=== PATIENT | male | born 1940 | race Caucasian/White ===

== ENCOUNTER 2019-02-12 11:26 | Inpatient (IN) | payer MEDICARE ==
[2019-02-12] MEDS ORDERED: NALOXONE 0.4 MG/ML 1 ML VIAL IV PRN (14:50)
[2019-02-12] MEDS ORDERED: TEMAZEPAM 15 MG CAP PO PRN (14:53)
[2019-02-12] MEDS: ALPRAZolam 0.25 MG TAB PO PRN (15:29)
[2019-02-12] MEDS: HYDROmorphone 0.5 MG/0.5 ML SYRINGE IVP PRN (15:29)
[2019-02-12 15:40] LABS: Basophils % (A) 0 %; Eosinophils # (A) 0.5 k/uL (0-0.7); Eosinophils % (A) 5 %; HCT 33.1 % (39.0-53.0); HGB 10.6 gm/dL (13.0-17.5); Lymphocytes # (A) 0.4 k/uL (1.0-4.8); Lymphocytes % (A) 4 %; MCH 30.3 pg (25.0-35.0); MCHC 32.1 g/dL (31.0-37.0); MCV 94.5 fL (80.0-100.0); Monocytes # (A) 0.8 k/uL (0-1.0); Monocytes % (A) 8 %; Neutrophils # (A) 7.9 k/uL (1.3-7.7); Neutrophils % (A) 81 %; Platelet Count 522 k/uL (150-450); RDW 14.4 % (11.5-15.5); WBC 9.8 k/uL (3.8-10.6)
[2019-02-12 15:49] LABS: Albumin 3.3 g/dL (3.5-5.0); Potassium 4.6 mmol/L (3.5-5.1); Total Bilirubin 0.5 mg/dL (0.2-1.3); Total Protein 6.2 g/dL (6.3-8.2)
[2019-02-12] MEDS: SODIUM CHLORIDE 0.9% 1,000 ML IV SCH (16:16)
[2019-02-12] MEDS: cloNIDine HCL 0.1 MG TAB PO SCH ×2 (16:17→20:09)
[2019-02-12] MEDS: HYDROcodone/APAP 5-325MG 1 EACH TAB PO PRN (19:26)
[2019-02-12] MEDS: amLODIPine 5 MG TAB PO SCH (20:09)
[2019-02-12] MEDS: HEPARIN SODIUM,PORCINE 5,000 UNIT/ML 1 ML VIAL SQ SCH (20:10)
--- NOTE | 2019-02-12 23:00 | CONS ---
CONSULTATION We do not have any data available in the computer at present. This patient was transferred from [facility] because of the recurrent hip dislocation and patient's blood pressure was running high. This patient underwent hip surgery couple of days ago and subsequently patient developed recurrent hip dislocation. Patient was going to have a repeat surgery, but in spite of multiple medications, this patient's blood pressure was running high and so he was transferred over here. Actually, the patient denies any past history of high blood pressure. No cardiac problems. No history of myocardial infarction, congestive heart failure, diabetes, or stroke. The patient has a history of colon cancer, and has a colostomy. PAST MEDICAL HISTORY: History of colostomy. No history of other cardiac problems. No history of diabetes. PHYSICAL EXAMINATION: At present reveals the patient is lying comfortably in the bed without any significant pain. Blood pressure is 178/80 mmHg. Head/ENT examination is negative. Neck is supple. There is no increase in jugular venous pressure. Both the carotid pulses are felt. There is no bruit. Chest is symmetrical. Heart the PMI is not felt. First and second heart sounds are normal. There is no evidence of any murmur. Lungs are clinically clear to auscultation and percussion. Abdomen is negative. Extremities: Peripheral pulsations are 2+. Initial CBC and electrolytes are normal. IMPRESSION: Uncontrolled hypertension, exact etiology undetermined in the postop period. The patient is not in any significant pain at present. RECOMMENDATIONS: We will do EKG and echocardiogram. Patient is started on clonidine 0.1 mg t.i.d. and amlodipine 5 mg b.i.d. Hopefully that will help to control the patient's blood pressure. Once the patient's blood pressure is controlled, the patient can undergo the surgery. MMODL / IJN: [id number] /
[2019-02-12] MEDS: hydrALAZINE HCL 20 MG/ML 1 ML VIAL IVP PRN (23:46)
--- NOTE | 2019-02-12 23:57 | HP ---
HISTORY AND PHYSICAL CHIEF COMPLAINT: Hypertension. HISTORY OF PRESENT ILLNESS: This 78-year-old gentleman with a past medical history of multiple medical problems, including prostate disorder, history of bowel resection, hernia repair, DJD, history of anxiety, being followed by Dr. Lambert in the outpatient setting, had right hip arthroplasty by Dr. Mosqueda in [facility]. Patient apparently fell down, hitting a stool on the way to the bathroom, and subsequently patient had dislocation twice. The patient was supposed to undergo intervention, but the patient was found to be hypertensive. The physician from [facility] discussed the case with us and the patient was directly transferred to [facility] and admitted for further evaluation and treatment. There is no history of any fever, rigor or chills. No history of headache, loss of consciousness, seizures. PAST MEDICAL HISTORY: 1. Prostate disorder. 2. History of bowel resection. 3. History of DJD. 4. History of hernia. 5. Anxiety. HOME MEDICATIONS: 1. Keflex 500 mg p.o. t.i.d. 2. Requip 0.5 mg at bedtime. 3. Flomax 0.4 daily. ALLERGIES: NONE. FAMILY HISTORY: History of dementia and prostate disorder. SOCIAL HISTORY: No history of smoking. No history of alcohol intake. REVIEW OF SYSTEMS: ENT: Diminished hearing. Diminished vision. CARDIOVASCULAR SYSTEM: No angina, palpitations. RESPIRATORY SYSTEM: As mentioned earlier. GI: No nausea, vomiting. : As mentioned earlier. NERVOUS SYSTEM: No numbness, weakness. ALLERGY/IMMUNOLOGY: No asthma, hayfever. MUSCULOSKELETAL: As mentioned earlier. HEMATOLOGY/ONCOLOGY: No history of anemia. ENDOCRINE: No history of diabetes, hypothyroidism. CONSTITUTIONAL: As mentioned earlier. DERMATOLOGY: Negative. RHEUMATOLOGY: Negative. PSYCHIATRY: As mentioned earlier. PHYSICAL EXAMINATION: Patient alert and oriented x3. Pulse is 92, blood pressure 190/96, respirations 16, temperature 98.4, pulse ox 94% on room air. HEENT: Conjunctivae normal. Oral mucosa moist. NECK: No jugular venous distention. No carotid bruit. No lymph node enlargement. CARDIOVASCULAR SYSTEM: S1, S2 muffled. No S3. No S4. RESPIRATORY SYSTEM: Breath sounds diminished at the bases. No rhonchi. No crackles. ABDOMEN: Soft, non-tender. No mass palpable. LEGS: Status post right hip arthroplasty. Slightly painful. Minimal swelling present. NERVOUS SYSTEM: Higher functions as mentioned earlier. Moves all 4 limbs. No focal motor or sensory deficit. LYMPHATICS: No lymph node palpable in neck, axillae or groin. SKIN: No ulcer, rash, bleeding. JOINTS: No active deforming arthropathy. LABS: Labs at this time show WBC 9.8, hemoglobin 10.6, platelets 522. Glucose 110. Albumin is 3.3. ASSESSMENT: 1. Accelerated hypertension and hypertensive urgency. 2. Recent right hip arthroplasty as well as dislocations. 3. Anemia, normocytic; anemia of chronic disease. 4. Increased platelets. 5. History of enlarged prostate. 6. History of bowel resection. 7. History of degenerative joint disease. 8. History of tonsillectomy. 9. History of anxiety. RECOMMENDATIONS AND DISCUSSION: In this 78-year-old gentleman who presented with multiple medical issues, at this time I recommend to continue current medications, continue with symptomatic treatment. Otherwise at this time I will initiate Norvasc and clonidine. Cardiology consultation. P.r.n. medication also will be given. DVT prophylaxis. Orthopedic evaluation. Two-D echo, EKG. Symptomatic treatment. The prognosis is guarded because of multiple complex medical issues. Further recommendations to follow. A copy of this dictation is being forwarded to Dr. Lambert, who is the primary physician. See orders for further details. MMODL / IJN: [id number] /
[2019-02-13] MEDS: HYDROmorphone 0.5 MG/0.5 ML SYRINGE IVP PRN ×2 (01:46→11:45)
[2019-02-13 06:13] LABS: Basophils % (A) 0 %; Eosinophils # (A) 0.3 k/uL (0-0.7); Eosinophils % (A) 3 %; HCT 32.7 % (39.0-53.0); HGB 10.8 gm/dL (13.0-17.5); Lymphocytes # (A) 0.4 k/uL (1.0-4.8); Lymphocytes % (A) 3 %; MCH 30.5 pg (25.0-35.0); MCHC 32.9 g/dL (31.0-37.0); MCV 92.6 fL (80.0-100.0); Mean Platelet Volume 7.3; Monocytes % (A) 10 %; Neutrophils # (A) 8.5 k/uL (1.3-7.7); Neutrophils % (A) 83 %; Platelet Count 530 k/uL (150-450); RBC 3.53 m/uL (4.30-5.90); RDW 14.7 % (11.5-15.5); WBC 10.3 k/uL (3.8-10.6)
[2019-02-13 06:25] LABS: Calcium 9.1 mg/dL (8.4-10.2); Potassium 4.5 mmol/L (3.5-5.1)
[2019-02-13] MEDS: HYDROcodone/APAP 5-325MG 1 EACH TAB PO PRN (06:33)
[2019-02-13] MEDS: PANTOPRAZOLE 40 MG TABLET PO SCH (06:33)
[2019-02-13] MEDS: TAMSULOSIN 0.4 MG CAP.ER.24H PO SCH (08:23)
[2019-02-13] MEDS: HEPARIN SODIUM,PORCINE 5,000 UNIT/ML 1 ML VIAL SQ SCH ×2 (08:23→22:08)
[2019-02-13] MEDS: cloNIDine HCL 0.1 MG TAB PO SCH (08:23)
[2019-02-13] MEDS: amLODIPine 5 MG TAB PO SCH ×2 (08:23→22:08)
[2019-02-13] MEDS: hydrALAZINE HCL 20 MG/ML 1 ML VIAL IVP PRN (08:24)
--- NOTE | 2019-02-13 09:31 | XR ---
EXAMINATION TYPE: XR Hip Limited RT DATE OF EXAM: 02/13/2019 COMPARISON: NONE HISTORY: Right hip dislocation and pain TECHNIQUE: Single AP view of the right hip FINDINGS: The femoral head is dislocated cephalad to the acetabular component on this single view. No acute fracture seen of the [place] osseous structures on the single view. Another plasty appears elaine sly intact. IMPRESSION: Superior displacement of the right femoral arthroplasty on AP view only.
--- NOTE | 2019-02-13 10:23 | ECHOF ---
Referral Reason:hypertension MEASUREMENTS -------- HEIGHT: 162.6 cm WEIGHT: 91.6 kg BP: 162/92 RVIDd: 3.6 cm (< 3.3) IVSd: 1.5 cm (0.6 - 1.1) LVIDd: 3.9 cm (3.9 - 5.3) LVPWd: 1.4 cm (0.6 - 1.1) IVSs: 1.8 cm LVIDs: 2.7 cm LVPWs: 2.0 cm LA Diam: 2.5 cm (2.7 - 3.8) LAESV Index (A-L): 33.98 ml/m Ao Diam: 3.8 cm (2.0 - 3.7) AV Cusp: 2.1 cm (1.5 - 2.6) EPSS: 0.4 cm MV E Edwin: 1.16 m/s MV DecT: 99 ms MV A Edwin: 0.33 m/s MV E/A Ratio: 3.53 AV maxP.74 mmHg AV meanP.60 mmHg AR PHT: 989 ms RAP: 5.00 mmHg RVSP: 44.69 mmHg MV EF SLOPE: 160.82 mm/s (70 - 150) MV EXCURSION: 1.68 cm (> 18.000) FINDINGS -------- Resting tachycardia (HR>100bpm). This was a technically adequate study. The left ventricular size is normal. There is moderate concentric left ventricular hypertrophy. O verall left ventricular systolic function is normal with, an EF between 60 - 65 %. The right ventricle is mildly enlarged. Left atrium is moderately dilated by volume. The right atrium is normal in size and function. Interatrial and interventricular septum intact. There is mild aortic valve sclerosis without stenosis. There is mild aortic regurgitation. There is mild aortic stenosis present. Peak/mean gradient across the valve is 16.74mmHg / 8.60mmHg. The mitral valve leaflets are mildly thickened. Mild mitral annular calcification present. Mild tricuspid regurgitation present. There is mild pulmonary hypertension. The right ventricular systolic pressure, as measured by Doppler, is 44.69mmHg. CONCLUSIONS -------- 1. Resting tachycardia (HR>100bpm). 2. This was a technically adequate study. 3. The left ventricular size is normal. 4. There is moderate concentric left ventricular hypertrophy. 5. Overall left ventricular systolic function is normal with, an EF between 60 - 65 %. 6. The right ventricle is mildly enlarged. 7. Left atrium is moderately dilated by volume. 8. The right atrium is normal in size and function. 9. Interatrial and interventricular septum intact. 10. There is mild aortic valve sclerosis without stenosis. 11. There is mild aortic regurgitation. 12. There is mild aortic stenosis present. 13. Peak/mean gradient across the valve is 16.74mmHg / 8.60mmHg. 14. The mitral valve leaflets are mildly thickened. 15. Mild mitral annular calcification present. 16. Mild tricuspid regurgitation present. 17. There is mild pulmonary hypertension. 18. The right ventricular systolic pressure, as measured by Doppler, is 44.69mmHg. LOGISTICS SPECIALIST: CHHAYA Lira
--- NOTE | 2019-02-13 11:45 | P.CNOR ---
<Rupal Weinberg Yonatan - Last Filed: 02/13/19 11:45> History of Present Illness - [facility] Consult date: 02/13/19 Consult reason: other (Recurrent right hip dislocation) History of present illness: The patient is a 78-year-old male with a history of prostate disorder and previous bowel resection with colostomy who presented to [facility] yesterday after transfer from [facility]. He is status post right total hip replacement on 02/04/[address] Mosqueda at [facility]. The patient states that he was doing well until postop day 2 when he twisted wrong in the bathroom and felt his right leg got underneath him. The hip was reduced by Dr. Mosqueda without difficulty. The hip however dislocated again when he was leaning over and twisting while still the hospital. The patient's states that that reduction was more difficult. A revision surgery was planned however the patient was found to have severe hypertension. [facility] does not have in ICU and Dr. Mosqueda was concerned the patient may require IV anti-hyp ertension medication postoperatively. The patient was then transferred here to [facility] for further evaluation and treatment for his hypertension. The patient has been evaluated by internal medicine and cardiology. We were consulted for his recurrent hip dislocation status post recent right total hip surgery. Today, the patient states that he is somewhat comfortable while laying in bed. He does have full body spasms at times and states IV pain medication does seem to help. He currently has a abduction pillow in place. Review of Systems Constitutional: Denies chills, Denies fatigue, Denies fever Cardiovascular: Denies chest pain, Denies shortness of breath Respiratory: Denies cough Gastrointestinal: Denies nausea, Denies vomiting Musculoskeletal: right: hip pain, hip stiffness, hip swelling Past Medical History Past Medical History: Prostate Disorder Additional Past Medical History / Comment(s): Enlarged prostate. History of Any Multi-Drug Resistant Organisms: None Reported Past Surgical History: Bowel Resection, Hernia Repair, Joint Replacement, Orthopedic Surgery, Tonsillectomy Additional Past Surgical History / Comment(s): hernia 1970, 2014 cancerous polyp removed chemo pill with radiation, 2018 colostomy placed, Right hip 02/04/2019 Past Anesthesia/Blood Transfusion Reactions: No Reported Reaction Past Psychological History: Anxiety Smoking Status: Never smoker Past Drug Use History: None Reported - Past Family History Father Family Medical History: Dementia, Prostate Disorder Additional Family Medical History / Comment(s): 1995 dementia Mother Family Medical History: CVA/TIA, Seizure Disorder Additional Family Medical History / Comment(s): Grand mal epileptic, 1988 stroke Medications and Allergies Home Medications Medication Instructions Recorded Confirmed Type Cephalexin [Keflex] 500 mg PO TID 02/12/19 02/12/19 History Tamsulosin [Flomax] 0.4 mg PO DAILY 02/12/19 02/12/19 History rOPINIRole HCL 0.5 mg PO HS 02/12/19 02/12/19 History Allergies Allergy/AdvReac Type Severity Reaction Status Date / Time No Known Allergies Allergy Verified 02/12/19 15:52 Physical Examination The patient is a pleasant 78-year-old male who is in no acute distress. He is alert and oriented 3. Exam of the right hip reveals a dressing that is clean dry and intact. Abduction pillow in place. The leg is shortened when compared to the left side. Range of motion was not performed. Bilateral calves are soft and nontender. The right foot is obviously colder compared to the left foot. He has a strong posterior tibial pulse on the right ankle and a 2/5 dorsalis pedis pulse on the right. Left foot is warm and well perfused. Neurological status is intact. Results - Labs Labs: Abnormal Lab Results - Last 24 Hours (Table) 02/12/19 02/12/19 02/13/19 Range/Units 15:21 15:21 05:33 RBC 3.50 L 3.53 L (4.30-5.90) m/uL Hgb 10.6 L 10.8 L (13.0-17.5) gm/dL Hct 33.1 L 32.7 L (39.0-53.0) % Plt Count 522 H 530 H (150-450) k/uL Neutrophils # 7.9 H 8.5 H (1.3-7.7) k/uL Lymphocytes # 0.4 L 0.4 L (1.0-4.8) k/uL Carbon Dioxide 31 H (22-30) mmol/L BUN 26 H (9-20) mg/dL Creatinine (0.66-1.25) mg/dL Glucose 110 H (74-99) mg/dL Total Protein 6.2 L (6.3-8.2) g/dL Albumin 3.3 L (3.5-5.0) g/dL 02/13/19 Range/Units 05:33 RBC (4.30-5.90) m/uL Hgb (13.0-17.5) gm/dL Hct (39.0-53.0) % Plt Count (150-450) k/uL Neutrophils # (1.3-7.7) k/uL Lymphocytes # (1.0-4.8) k/uL Carbon Dioxide (22-30) mmol/L BUN 27 H (9-20) mg/dL Creatinine 1.26 H (0.66-1.25) mg/dL Glucose 116 H (74-99) mg/dL Total Protein (6.3-8.2) g/dL Albumin (3.5-5.0) g/dL H & H 02/12/19 02/13/19 Range/Units 15:21 05:33 Hgb 10.6 L 10.8 L (13.0-17.5) gm/dL Hct 33.1 L 32.7 L (39.0-53.0) % Result Diagrams: 02/13/19 05:33 02/13/19 05:33 - Diagnostic results Hip x-ray: image reviewed (Two views of the right hip and one view pelvis reveal a superior dislocation of the right hip arthroplasty.) Assessment and Plan (1) Recurrent dislocation of hip joint prosthesis Current Visit: Yes Status: Acute Code(s): T84.029A - DISLOCATION OF UNSP INTERNAL JOINT PROSTHESIS, INIT ENCNTR; Z96.649 - PRESENCE OF UNSPECIFIED ARTIFICIAL HIP JOINT SNOMED Code(s): 921734140 (2) Hypertension Current Visit: Yes Status: Acute Code(s): I10 - ESSENTIAL (PRIMARY) HYPERTENSION SNOMED Code(s): 27213979 Plan: The clinical and x-ray findings were discussed with the patient and the patient's at the bedside. The case was also discussed with Dr. Yates. I have called Dr. Mosqueda's office to get further direction on what his plans are after his blood pressure is under control. Awaiting a call back after Dr. Mosqueda gets out of surgery. The patient will be nothing by mouth at midnight for close reduction of the right hip tomorrow morning. Continue pain control. Bedrest and hold off on PT/OT at this time. The patient will be evaluated by Dr. Yates later this afternoon. <Claude Yates - Last Filed: 02/13/19 18:10> Results - Labs Labs: Abnormal Lab Results - Last 24 Hours (Table) 02/13/19 02/13/19 02/13/19 Range/Units 05:33 05:33 05:33 RBC 3.53 L (4.30-5.90) m/uL Hgb 10.8 L (13.0-17.5) gm/dL Hct 32.7 L (39.0-53.0) % Plt Count 530 H (150-450) k/uL Neutrophils # 8.5 H (1.3-7.7) k/uL Lymphocytes # 0.4 L (1.0-4.8) k/uL BUN 27 H (9-20) mg/dL Creatinine 1.26 H (0.66-1.25) mg/dL Glucose 116 H (74-99) mg/dL TSH 8.910 H (0.465-4.680) mIU/L H & H 02/12/19 02/13/19 Range/Units 15:21 05:33 Hgb 10.6 L 10.8 L (13.0-17.5) gm/dL Hct 33.1 L 32.7 L (39.0-53.0) % Result Diagrams: 02/13/19 05:33 02/13/19 05:33 Assessment and Plan Plan: Discussed with VICTOR MANUEL Weinberg and agree with above. Patient was subsequently seen and examined by myself as well. S: The patient states the hip does not hurt. He states he hasn't had any pain throughout this entire experience, even immediately after the index surgery. He does have a history of restless leg syndrome. He notes that there was a clicking sound/sensation in the hip during the first couple days after surgery. O: The right lower extremity is visibly shorter without gross rotational deformity. The foot is well perfused with a palpable dorsalis pedis pulse. Intact light touch sensation circumferentially around the foot and gross motor function with dorsiflexion and plantarflexion. Imaging: Posterosuperior dislocation of right total hip arthroplasty. No obvious periprosthetic fracture. A: 1. Acute recurrent dislocations of right total hip arthroplasty on 02/04/2019. P: I discussed the clinical and radiographic findings with the patient and his and [id number]. Treatment options, along with associated risks and benefits, were reviewed and I recommended repeat closed reduction with examination under anesthesia. Given that he has had 3 dislocations in the early postoperative period, he will almost certainly require revision surgery at a later date. Questions were invited and answered to their satisfaction. He expressed understanding and was in agreement with the proposed plan. The patien t will be made NPO after midnight with plan for closed reduction in the morning. Claude Yates D.O. [facility]
--- NOTE | 2019-02-13 11:46 | XR ---
EXAMINATION TYPE: XR Hip Limited RT DATE OF EXAM: 02/13/2019 CLINICAL HISTORY: Right hip dislocation TECHNIQUE: Cross table frogleg view of the right hip are obtained. COMPARISON: None. FINDINGS/IMPRESSION: There is and medial displacement of the known superior right hip dislocation of the right arthroplasty.
--- NOTE | 2019-02-13 11:48 | XR ---
EXAMINATION TYPE: XR pelvis AP view DATE OF EXAM: 02/13/2019 CLINICAL HISTORY: Right hip dislocation TECHNIQUE: A single AP view of the pelvis is obtained. COMPARISON: X-rays of the same date. FINDINGS: There is superior medial dislocation of the right hip arthroplasty when correlated with pr ior x-rays of the same date. No acute fracture seen of the pelvis. Degenerative changes of the lumbos acral junction and mild left femoral acetabular arthropathy are noted. IMPRESSION: Redemonstration of a known superior hip dislocation noted to be superior-medial on the fr og-leg crosstable lateral view of the same date.
[2019-02-13] MEDS: METOPROLOL SUCCINATE (ER) 25 MG TAB.ER.24H PO SCH (13:42)
[2019-02-13 14:30] VITALS: BMI 34.8
[2019-02-13] MEDS: SODIUM CHLORIDE 0.9% 1,000 ML IV SCH (15:16)
[2019-02-13] MEDS: cloNIDine HCL 0.2 MG TAB PO SCH ×2 (15:17→22:08)
--- NOTE | 2019-02-13 15:41 | P.PN ---
Subjective Progress Note Date: 02/13/19 This is 78-year-old gentleman transferred from [facility] because of frequent current hip location, his blood pressure was running significantly elevated for which a cardiology consultation had been requested. Patient was seen and examined today blood pressure 170/105, heart rate 105. We will incr ease the patient's clonidine today, and also start the patient on some Toprol for more optimal blood pressure control, we will check thyroid studies as well. Objective - Vital Signs Vital signs: Vital Signs Temp 97.2 F L 02/13/19 11:50 Pulse 104 H 02/13/19 11:50 Resp 16 02/13/19 11:50 BP 144/82 02/13/19 11:50 Pulse Ox 92 L 02/13/19 11:50 Intake & Output 02/12/19 02/13/19 02/13/19 18:59 06:59 18:59 Intake Total 360 222 Balance 360 222 Weight 92.5 kg 92 kg 92 kg Intake: Intake, IV Titration 80 Amount Sodium Chloride 0.9% 1, 80 000 ml @ 20 mls/hr IV . Q24H TODD Rx#:[id number] Oral 280 222 Other: Voiding Method Urinal Urinal Urinal Diaper Diaper # Voids 1 2 - Exam PHYSICAL EXAMINATION: GENERAL: 78-year-old gentleman in no acute distress at the time of my examination HEENT: Head is atraumatic, normocephalic. Pupils equal, round. Sclera anicteric. Conjunctiva are clear. Mucous membranes of the mouth are moist. Neck is supple. There is no elevated jugular venous pressure.] bruit is heard. HEART EXAMINATION: [Heart S1, S2 normal. No murmur or gallop heard.] CHEST EXAMINATION:[ Lungs are clear to auscultation and precussion. No chest wall tenderness is noted on palpation or with deep breathing.] ABDOMEN: [ Soft, nontender. Bowel sounds are heard. No organomegaly noted]. EXTREMITIES:[ 2+ peripheral pulses with no evidence of peripheral edema and no calf tenderness noted]. NEUROLOGIC [patient is awake, alert and oriented X3.] . - Labs CBC & Chem 7: 02/13/19 05:33 02/13/19 05:33 Labs: Abnormal Lab Results - Last 24 Hours (Table) 02/12/19 02/12/19 02/13/19 Range/Units 15:21 15:21 05:33 RBC 3.50 L 3.53 L (4.30-5.90) m/uL Hgb 10.6 L 10.8 L (13.0-17.5) gm/dL Hct 33.1 L 32.7 L (39.0-53.0) % Plt Count 522 H 530 H (150-450) k/uL Neutrophils # 7.9 H 8.5 H (1.3-7.7) k/uL Lymphocytes # 0.4 L 0.4 L (1.0-4.8) k/uL Carbon Dioxide 31 H (22-30) mmol/L BUN 26 H (9-20) mg/dL Creatinine (0.66-1.25) mg/dL Glucose 110 H (74-99) mg/dL Total Protein 6.2 L (6.3-8.2) g/dL Albumin 3.3 L (3.5-5.0) g/dL 02/13/19 Range/Units 05:33 RBC (4.30-5.90) m/uL Hgb (13.0-17.5) gm/dL Hct (39.0-53.0) % Plt Count (150-450) k/uL Neutrophils # (1.3-7.7) k/uL Lymphocytes # (1.0-4.8) k/uL Carbon Dioxide (22-30) mmol/L BUN 27 H (9-20) mg/dL Creatinine 1.26 H (0.66-1.25) mg/dL Glucose 116 H (74-99) mg/dL Total Protein (6.3-8.2) g/dL Albumin (3.5-5.0) g/dL Assessment and Plan Plan: Assessment and plan #1 uncontrolled hypertension #2 recurrent hip dislocation Plan We will increase the patient's dose of clonidine and add Toprol to the medication regime. Also obtain free T4 and TSH. DNP note has been reviewed, I agree with a documented findings and plan of care. Patient was seen and examined.
--- NOTE | 2019-02-13 22:24 | PN ---
PROGRESS NOTE DATE OF SERVICE: 02/13/2019. This 78-year-old gentleman who was admitted with accelerated hypertension also had multiple dislocations after recent surgery. Orthopedic Surgery is following the patient. X-ray has been ordered. Dr. Yates is following the patient closely for recurrent dislocation. No chest pain. No palpitations. No fever. REVIEW OF SYSTEMS: CARDIOVASCULAR SYSTEM: No angina, palpitations. RESPIRATORY SYSTEM: As mentioned earlier. GI: As mentioned earlier. : No dysuria or retention. NERVOUS SYSTEM: No numbness, weakness. CURRENT MEDICATIONS: Reviewed. They include: 1. [place] 5 mg. 2. Xanax. 3. Norvasc 5 mg p.o. b.i.d. 4. Heparin. 5. Apresoline p.r.n. 6. Toprol-XL. 7. Narcan. 8. Protonix. 9. Requip. 10.Flomax. 11.Restoril. PHYSICAL EXAMINATION: Alert and oriented x3. Pulse is 100, blood pressure 126/89, respiration 12, temperature 98 degrees, pulse ox 93% on room air. HEENT: Conjunctivae normal. NECK: No jugular venous distention. CARDIOVASCULAR SYSTEM: S1, S2 muffled. RESPIRATORY SYSTEM: Breath sounds diminished at the bases. No rhonchi. No crackles. ABDOMEN: Soft, non-tender. LEGS: No edema. No swelling. NERVOUS SYSTEM: No focal deficit. LABS: WBC 10.3, hemoglobin 10.8, creatinine 1.26. TSH is 8.90. ASSESSMENT: 1. Accelerated hypertension with hypertensive urgency. 2. Recent right hip arthroplasty as well as recurrent dislocation. 3. Mild acute renal failure. 4. Anemia, normocytic; anemia of chronic disease. 5. Increased platelets. 6. History of enlarged prostate. 7. History of bowel resection. 8. History of degenerative joint disease. 9. History of tonsillectomy. 10.Next history of anxiety. 11.Increased TSH; rule out hypothyroidism. RECOMMENDATIONS AND DISCUSSION: In this 78-year-old gentleman who presented with multiple complex medical issues, we will monitor the patient closely, continue the current management, continue symptomatic treatment. Closely follow with Orthopedic Surgery. I would recommend IV fluids. Repeat labs in the morning. DVT prophylaxis. I would also recommend free T3 and free T4 to rule out the possibility of hypothyroidism. Prognosis guarded. Further recommendations to follow. MMODL / IJN: [id number] /
[2019-02-14] MEDS: HYDROcodone/APAP 5-325MG 1 EACH TAB PO PRN ×2 (04:32→16:18)
[2019-02-14 07:13] LABS: Basophils % (A) 0 %; Eosinophils # (A) 0.5 k/uL (0-0.7); Eosinophils % (A) 5 %; HCT 29.7 % (39.0-53.0); HGB 9.9 gm/dL (13.0-17.5); Lymphocytes # (A) 0.5 k/uL (1.0-4.8); Lymphocytes % (A) 5 %; MCH 30.7 pg (25.0-35.0); MCHC 33.5 g/dL (31.0-37.0); MCV 91.8 fL (80.0-100.0); Mean Platelet Volume 8.3; Monocytes # (A) 0.8 k/uL (0-1.0); Monocytes % (A) 8 %; Neutrophils # (A) 7.6 k/uL (1.3-7.7); Neutrophils % (A) 80 %; Platelet Count 435 k/uL (150-450); RBC 3.23 m/uL (4.30-5.90); RDW 14.5 % (11.5-15.5); WBC 9.5 k/uL (3.8-10.6)
[2019-02-14 07:24] LABS: Calcium 8.5 mg/dL (8.4-10.2); Potassium 4.1 mmol/L (3.5-5.1)
[2019-02-14] MEDS: HEPARIN SODIUM,PORCINE 5,000 UNIT/ML 1 ML VIAL SQ SCH ×2 (07:27→20:09)
[2019-02-14] MEDS ORDERED: fentaNYL (PF) 50 MCG/ML 2 ML AMP ONE (09:03)
[2019-02-14] MEDS ORDERED: PROPOFOL 10 MG/ML 20 ML VIAL IV ONE (09:03)
[2019-02-14] MEDS ORDERED: MIDAZOLAM 2 MG/2 ML VIAL ONE (09:03)
[2019-02-14] MEDS ORDERED: SODIUM CHLORIDE 0.9% 1,000 ML IV ONE (09:12)
[2019-02-14] MEDS: cloNIDine HCL 0.2 MG TAB PO SCH (10:33)
[2019-02-14] MEDS: TAMSULOSIN 0.4 MG CAP.ER.24H PO SCH (10:33)
[2019-02-14] MEDS: PANTOPRAZOLE 40 MG TABLET PO SCH (10:33)
[2019-02-14] MEDS: METOPROLOL SUCCINATE (ER) 25 MG TAB.ER.24H PO SCH (10:33)
[2019-02-14] MEDS: amLODIPine 5 MG TAB PO SCH (10:34)
--- NOTE | 2019-02-14 11:39 | XR ---
Fluoroscopy INDICATION: Pain FINDINGS: Fluoroscopy time: 25 seconds. Images obtained: 3. IMPRESSIONS: 1. Documentation of fluoroscopy.
--- NOTE | 2019-02-14 11:39 | FL ---
Fluoroscopy INDICATION: Pain closed right hip reduction FINDINGS: Fluoroscopy time: 25 seconds. Images obtained: 3. IMPRESSIONS: 1. Documentation of fluoroscopy.
[2019-02-14] MEDS ORDERED: MAGNESIUM HYDROXIDE 2,400 MG/10 ML CUP PO PRN (12:43)
[2019-02-14] MEDS: DOCUSATE 100 MG CAP PO SCH ×2 (13:12→20:09)
--- NOTE | 2019-02-14 15:39 | P.PCN ---
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 Closed reduction of right total hip arthroplasty 2. Fluoroscopic examination under anesthesia and manual application of joint stress by physician Anesthesia: MAC Surgeon: Claude Yates Condition: stable Disposition: PACU Indications for Procedure: The patient is a pleasant 78-year-old male who underwent primary right total hip arthroplasty on 01/27/[address] Mosqueda at [facility]. He was initially doing well then dislocated twice, beginning on postoperative day #2. Closed reduction was recommended. Risks and benefits were discussed with patient including (but not limited to) recurrent dislocation, periprosthetic fracture and possible need for future surgery. He expressed understanding and wished to go ahead with the procedure. The dislocated hip was confirmed and marked preoperatively. Operative Findings: The hip easily dislocates with ANY internal rotation past neutral, both in full extension and flexion. Description of Procedure: The patient was brought to the operating suite and positioned supine. Monitored anesthesia was administered uneventfully. A time-out was performed, confirming the patient identifiers, the procedural side, the site and the procedure to be performed: all team members expressed agreement. The right lower extremity was visibly shorter than the left. The patient's pelvis was stabilized by 2 assistants. The Allis technique was employed. The hip was slightly flexed. Steady axial traction was applied, followed by gentle internal and external rotation with gradual adduction. A subtle audible and palpable clunk was noted. Leg lengths were once again symmetric. Reduction was confirmed on intraoperative fluoroscopy. The hip was taken through a range of motion to assess stability. It easily dislocated posteriorly with any internal rotation, both in neutral extension and with flexion/adduction. This easily reduced with the gentle axial traction and rotation. Concentric reduction was again confirmed on orthogonal imaging. An abduction pillow was placed. The patient was awakened uneventfully, transferred to a hospital bed and taken to recovery in stable condition.
--- NOTE | 2019-02-14 15:51 | P.PN ---
Subjective Progress Note Date: 02/14/19 The patient underwent closed reduction of recurrent right total hip dislocation this morning. This afternoon, he was seen by physical therapy and was attempting to slide over to get out of bed and felt a pop. The abduction pillow was still in place at this time. He is concerned that he may have dislocated the hip again. He denies any pain but his reports he usually doesn't complain of pain: The only way they have known something was amiss was when he began to demonstrate muscle spasms. Objective - Vital Signs Vital signs: Vital Signs Temp 97.8 F 02/14/19 10:15 Pulse 68 02/14/19 11:15 Resp 16 02/14/19 10:15 BP 106/70 02/14/19 11:15 Pulse Ox 93 L 02/14/19 10:15 Intake & Output 02/13/19 02/14/19 02/14/19 18:59 06:59 18:59 Intake Total 222 836 Balance 222 836 Weight 92 kg 73.5 kg Intake: IV 600 Oral 222 236 Other: Voiding Method Urinal Diaper Diaper Incontinent # Voids 2 3 # Bowel Movements 0 - Exam The abduction pillow is in place. The right leg appears marginally shorter than the left. Passive flexion and external rotation reveals limited motion in both directions. He describes pain with attempted passive flexion beyond 45 there is a palpable block to motion. Gentle axial traction was applied: an audible, visible and palpable reduction was noted. Passive range of motion was markedly improved. When axial load or internal rotation was applied, the hip again dislocated posteriorly but easily reduced using the same reduction maneuver. 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 The hip is grossly unstable and will ultimately require revision surgery. I suggested we may be able to achieve some interim stability with the use of a hip abduction orthosis. We will contact Kyrie to see how soon one could be obtained. Maintain posterior hip precautions with strict avoidance of any adduction and especially internal rotation.
[2019-02-14 16:22] LABS: T4, Free (Free Thyroxine) 1.02 ng/dL (0.78-2.19)
[2019-02-14] MEDS: SODIUM CHLORIDE 0.9% 1,000 ML IV SCH (18:32)
--- NOTE | 2019-02-14 20:03 | PN ---
PROGRESS NOTE DATE OF SERVICE: 02/14/2019 This 78-year-old gentleman was admitted with accelerated hypertension, hypertensive urgency is being closely monitored. Patient also had recent hip fracture and recent hip surgery. The patient had multiple dislocations and currently the patient suspects the hip is dislocated. No chest pain. No palpitations. No fever. EXAM: Alert and oriented x3. The pulse is 68, blood pressure 106/72, respiration 20, temperature normal. HEENT: Conjunctivae normal. NECK: No JVD. CARDIOVASCULAR: S1, S2 muffled. RESPIRATORY: Breath sounds diminished in the bases. A few rhonchi. No crackles. ABDOMEN is soft, nontender. LEGS: Status post hip fracture, painful. LAB STUDIES: WBC 9.2, hemoglobin 9.9, creatinine 1.41. TSH is 8.90. ASSESSMENT: 1. Accelerated hypertension with hypertensive urgency. 2. Recent right hip arthroplasty as well as recurrent dislocations. 3. Mild acute renal failure possibly prerenal acute tubular necrosis. 4. Anemia, normocytic anemia of chronic disease. 5. Increased platelets. 6. History of enlarged prostate. 7. History of bowel resection. 8. History of degenerative joint disease. 9. History of tonsillectomy. 10.History of anxiety. 12.Rule out hypothyroidism. RECOMMENDATIONS AND DISCUSSION: This 78-year-old gentleman who presented with multiple complex medical issues, we will monitor the patient closely, continue the symptomatic treatment. DVT prophylaxis. Pain medications also. The family expressed wishes to have the surgery done here. We will convey this to Orthopedic surgery for their evaluation. Otherwise, continue to monitor. Further recommendations to follow. Blood pressure is fairly well controlled at this time. MMODL / IJN: [id number] / JORGE
[2019-02-14] MEDS ORDERED: cloNIDine HCL 0.1 MG TAB PO SCH (21:00)
[2019-02-15] MEDS: HYDROmorphone 0.5 MG/0.5 ML SYRINGE IVP PRN (03:15)
[2019-02-15 08:33] LABS: Basophils % (A) 0 %; Eosinophils # (A) 0.2 k/uL (0-0.7); Eosinophils % (A) 2 %; HCT 31.8 % (39.0-53.0); HGB 10.4 gm/dL (13.0-17.5); Lymphocytes # (A) 0.4 k/uL (1.0-4.8); Lymphocytes % (A) 3 %; MCH 30.1 pg (25.0-35.0); MCHC 32.8 g/dL (31.0-37.0); MCV 91.6 fL (80.0-100.0); Mean Platelet Volume 7.4; Monocytes # (A) 0.7 k/uL (0-1.0); Monocytes % (A) 5 %; Neutrophils % (A) 89 %; Platelet Count 524 k/uL (150-450); RBC 3.47 m/uL (4.30-5.90); RDW 14.2 % (11.5-15.5); WBC 13.5 k/uL (3.8-10.6)
[2019-02-15 08:42] LABS: Calcium 9.1 mg/dL (8.4-10.2); Potassium 4.2 mmol/L (3.5-5.1)
[2019-02-15] MEDS: HEPARIN SODIUM,PORCINE 5,000 UNIT/ML 1 ML VIAL SQ SCH (08:47)
[2019-02-15] MEDS: METOPROLOL SUCCINATE (ER) 25 MG TAB.ER.24H PO SCH (08:47)
[2019-02-15] MEDS: PANTOPRAZOLE 40 MG TABLET PO SCH (08:47)
[2019-02-15] MEDS: hydrALAZINE HCL 20 MG/ML 1 ML VIAL IVP PRN ×2 (08:55→13:29)
[2019-02-15] MEDS: ALPRAZolam 0.25 MG TAB PO PRN (08:59)
[2019-02-15] MEDS ORDERED: ONDANSETRON 4 MG/2 ML VIAL IVP PRN (10:31)
[2019-02-15] MEDS: DOCUSATE 100 MG CAP PO SCH ×2 (11:12→20:19)
[2019-02-15] MEDS: TAMSULOSIN 0.4 MG CAP.ER.24H PO SCH (11:12)
[2019-02-15] MEDS: HYDROcodone/APAP 5-325MG 1 EACH TAB PO PRN ×2 (11:12→20:19)
--- NOTE | 2019-02-15 11:25 | P.PN ---
Subjective Progress Note Date: 02/15/19 The patient was seen and examined. His is present at bedside. He denies any pain. He is quite apprehensive about trying to move around for fear of re- dislocating and has not tried to get out of bed. He admits that he is quite uncomfortable, having spent much of the last 10 days in bed. He denies any new issues overnight. He has had no further clunking sensations in the hip. Objective - Vital Signs Vital signs: Vital Signs Temp 98.6 F 02/15/19 07:00 Pulse 120 H 02/15/19 08:00 Resp 17 02/15/19 07:00 BP 148/94 02/15/19 07:00 Pulse Ox 94 L 02/15/19 07:00 Intake & Output 02/14/19 02/15/19 02/15/19 18:59 06:59 18:59 Intake Total 1472 0 Balance 1472 0 Weight 94.5 kg Intake: IV 600 Intake, IV Titration 160 Amount Sodium Chloride 0.9% 1, 160 000 ml @ 20 mls/hr IV . Q24H TODD Rx#:[id number] Oral 712 0 Other: Voiding Method Diaper Diaper Incontinent Incontinent # Voids 1 1 # Bowel Movements 1 - Exam Incision is well approximated without erythema or signs of infection. The abdu ction pillow is in place. Leg lengths appear symmetric. He is quite guarded on exam but gentle circumduction reveals a smooth articulation clunking or subluxation. 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 The case was discussed with Dr. Pravin Winslow who will further evaluate the patient and likely proceed with revision total hip arthroplasty on 03/19/2019. Though there is certainly still a chance of redislocation, encouraged him to try getting out of bed, onto the chair to the bathroom with a walker and assist. He expressed understanding and agreement and we will have physical therapy work with him. Maintain posterior hip precautions with strict avoidance of any adduction and especially internal rotation.
[2019-02-15] MEDS: SODIUM CHLORIDE 0.9% 1,000 ML IV SCH (15:00)
--- NOTE | 2019-02-15 15:55 | XR ---
EXAMINATION TYPE: XR chest 1V DATE OF EXAM: 02/15/2019 COMPARISON: 06/21/2014 HISTORY: Short of breath TECHNIQUE: Single frontal view of the chest is obtained. FINDINGS: There is no heart failure nor confluent pneumonic infiltrate. Costophrenic angles are baljinder r. There are chest leads. Bony thorax is intact. IMPRESSION: No active cardiopulmonary disease. No change. Normal heart.
[2019-02-15] MEDS ORDERED: FUROSEMIDE 10 MG/ML 2 ML VIAL IV STA (16:00)
--- NOTE | 2019-02-15 16:24 | PN ---
PROGRESS NOTE DATE OF SERVICE: 02/15/2019. This 78-year-old gentleman admitted with accelerated hypertension, hypertensive urgency, also has some desaturation today. The patient also had a history of recurrent dislocation after hip arthroplasty done elsewhere. Orthopedic surgery is following the patient closely. Patient being closely monitored. No chest pain. No palpitations. PAST MEDICAL HISTORY: Reviewed. REVIEW OF SYSTEMS: Cardiovascular system: As mentioned earlier. RESPIRATORY: As mentioned earlier. GI no nausea or vomiting. no dysuria. CENTRAL NERVOUS SYSTEM: No numbness or weakness. CURRENT MEDICATIONS: Reviewed and include: 1. Opolis 5 mg q.6h p.r.n. 2. Xanax 0.25 t.i.d. 3. Colace 100 mg p.o. b.i.d. 4. Heparin 5000 subcu b.i.d. 5. Apresoline 10 mg IV q.4 p.r.n. 6. Dilaudid 0.5 mg q.6h. 7. Milk of magnesia 2.4 g daily p.r.n. 8. Toprol-XL 25 mg p.o. daily. 9. Narcan 0.2 q.2 p.r.n. 10.Zofran 4 mg q.6h. 11.Protonix 40 mg daily. 12.Requip 0.5 q.h.s. 13.Flomax 0.4. 14.Restoril 15 mg q.h.s. p.r.n. PHYSICAL EXAM: Patient is alert and oriented times three. Pulse 114, blood pressure 148/94, respirations 17, temperature 98.6, pulse ox 94% on room air. HEENT: Conjunctivae normal. Oral mucosa moist. NECK is no jugular venous distention. No carotid bruit. No lymph node enlargement. CARDIOVASCULAR is S1, S2. No S3, no S4. RESPIRATORY: Breath sounds diminished in the bases. No rhonchi. No crackles. ABDOMEN: Soft, nontender. No mass palpable. LEGS status post right hip arthroplasty. NERVOUS SYSTEM: No focal deficits. LABS: WBC 13.2, hemoglobin 10.4, and creatinine is 1.39. ASSESSMENT: 1. Accelerated hypertension with hypertensive urgency present on admission. 2. Recent right hip arthroplasty with recurrent dislocations. 3. Mild acute renal failure possibly prerenal acute tubular necrosis. 4. Anemia, normocytic anemia of chronic disease. 5. Increased platelets. 6. Hypoxia, rule out pulmonary embolism. 7. History of enlarged prostate. 8. History of bowel resection. 9. History of degenerative joint disease. 10.History of tonsillectomy. 11.History of anxiety. 12.Sick euthyroid syndrome, hypothyroidism, unlikely with normal free T4 and as well as increased TSH. 13.FULL CODE. RECOMMENDATIONS AND DISCUSSION: In this 72-year-old gentleman who presented with multiple medical issues, at this time, I recommend to continue the current medications, management and symptomatic treatment. I recommend increase IV fluids to 75 mL/hour. Monitor creatinine closely. I would also recommend a D-dimer. If it is high, I would recommend a CT angio of the chest. Otherwise, I would also recommend a chest x-ray with possible atelectasis. Continue oxygen. Continue rest of medications and pulmonary consultation. Closely follow with Orthopedic surgery. Orthopedics is planning surgery on Saturday and we will continue to monitor. Further recommendations to follow. MMODL / IJN: [id number] /
[2019-02-15 17:33] LABS: Appearance,Urine Clear (Clear); Bacteria,Urine Rare /hpf; Bilirubin,Urine Negative (Negative); Blood,Urine Trace (Negative); Budding Yeast,Urine Rare /hpf; Color,Urine Light Yellow; Glucose,Urine (UA) Negative (Negative); Ketones,Urine Negative (Negative); Leukocyte Esterase,Urine Negative (Negative); Mucus,Urine Rare /hpf; Nitrite,Urine Negative (Negative); PH, Urine 5.5 (5.0-8.0); Protein,Urine Negative (Negative); RBC,Urine 4 /hpf (0-5); Specific Gravity,Urine 1.011 (1.001-1.035); Squamous Epithelial Cell,Urine <1 /hpf (0-4); Urobilinogen,Urine <2.0 mg/dL (<2.0); WBC,Urine 4 /hpf (0-5)
--- NOTE | 2019-02-15 20:24 | NM ---
EXAMINATION TYPE: NM pul vent and perfuse DATE OF EXAM: 02/15/2019 COMPARISON: NONE HISTORY: TECHNIQUE: Utilizing inhalation of 68.9 mCi Tc 99m DTPA aerosol and intravenous injection of 5.3 mCi of Tc 99m MAA, ventilation and perfusion images are acquired post injection in multiple projections. FINDINGS: There are multiple segmental sized perfusion defects in the right lung. Perfusion abnormalities are l arger than the ventilation abnormalities. There is no significant mismatch in the left lung. There are subsegmental perfusion defects in the lingula left upper lobe and in the lateral aspect of the left lower lobe and left upper lobe. IMPRESSION: There are segmental sized perfusion mismatch defects in the right lung that correspond to a high prob ability of pulmonary embolism. There is involvement of both right upper lobe and right lower lobe.
[2019-02-15] MEDS ORDERED: HEPARIN SODIUM,PORCINE 5,000 UNIT/ML 1 ML VIAL IV PRN (20:49)
[2019-02-15] MEDS ORDERED: HEPARIN SODIUM,PORCINE 10,000 UNIT/ML 1 ML VIAL IV ONE (20:49)
[2019-02-15] MEDS ORDERED: HEPARIN SOD,PORK IN 0.45% NACL 25,000 UNIT in 0.45% NACL 1 250ML.BAG IV SCH (21:00)
[2019-02-15 21:47] LABS: Basophils % (A) 0 %; Eosinophils # (A) 0.1 k/uL (0-0.7); Eosinophils % (A) 0 %; HCT 31.1 % (39.0-53.0); HGB 10.3 gm/dL (13.0-17.5); Lymphocytes # (A) 0.4 k/uL (1.0-4.8); Lymphocytes % (A) 3 %; MCH 30.4 pg (25.0-35.0); MCV 92.1 fL (80.0-100.0); Monocytes # (A) 0.9 k/uL (0-1.0); Monocytes % (A) 6 %; Neutrophils # (A) 14.6 k/uL (1.3-7.7); Neutrophils % (A) 90 %; Platelet Count 463 k/uL (150-450); RBC 3.38 m/uL (4.30-5.90); RDW 13.6 % (11.5-15.5); WBC 16.2 k/uL (3.8-10.6)
[2019-02-15 22:08] LABS: INR 1.1 (<1.2); Prothrombin Time 11.3 sec (9.0-12.0)
[2019-02-15 22:12] LABS: Partial Thromboplastin Time 115.2 sec (22.0-30.0)
[2019-02-16] MEDS: HYDROmorphone 0.5 MG/0.5 ML SYRINGE IVP PRN (02:33)
[2019-02-16 04:02] LABS: Basophils # (A) 0.1 k/uL (0-0.2); Basophils % (A) 1 %; Eosinophils # (A) 0.3 k/uL (0-0.7); Eosinophils % (A) 2 %; HCT 29.5 % (39.0-53.0); HGB 9.5 gm/dL (13.0-17.5); Lymphocytes # (A) 0.4 k/uL (1.0-4.8); Lymphocytes % (A) 2 %; MCH 30.1 pg (25.0-35.0); MCHC 32.4 g/dL (31.0-37.0); MCV 92.9 fL (80.0-100.0); Mean Platelet Volume 7.3; Monocytes # (A) 0.7 k/uL (0-1.0); Monocytes % (A) 4 %; Neutrophils % (A) 90 %; Platelet Count 488 k/uL (150-450); RBC 3.17 m/uL (4.30-5.90); RDW 14.5 % (11.5-15.5); WBC 15.6 k/uL (3.8-10.6)
[2019-02-16 04:58] LABS: Calcium 8.4 mg/dL (8.4-10.2); Potassium 4.1 mmol/L (3.5-5.1)
[2019-02-16] MEDS: TAMSULOSIN 0.4 MG CAP.ER.24H PO SCH (08:25)
[2019-02-16] MEDS: METOPROLOL SUCCINATE (ER) 25 MG TAB.ER.24H PO SCH (08:25)
[2019-02-16] MEDS: HYDROcodone/APAP 5-325MG 1 EACH TAB PO PRN ×2 (08:26→14:55)
[2019-02-16] MEDS: PANTOPRAZOLE 40 MG TABLET PO SCH (08:26)
[2019-02-16] MEDS: DOCUSATE 100 MG CAP PO SCH (08:26)
[2019-02-16] MEDS ORDERED: APIXABAN 5 MG TAB PO SCH (09:15)
--- NOTE | 2019-02-16 09:15 | P.PN ---
Subjective Progress Note Date: 02/16/19 Principal diagnosis: Pulmonary embolism This is a pleasant 78-year-old gentleman who [facility] of the hip. In the hospital, the patient developed shortness of breath. D-dimer was elevated. Subsequently the patient underwent a VQ scan which came in to be showing hypomobility for PE. Subsequently the patient was started on heparin IV. On follow-up with the patient today, he still having some shortness of breath but is better compared to before. No chest pain or chest discomfort. Hemodynamically he is tachycardic with a resting heart rate around 120 beats per minutes. He is on Toprol-XL which I am going to increase. Beside that he is on heparin IV. There is no plan for any surgery to be done on the hip at this point. I am going to DC the heparin IV and start the patient on oral anticoagulation. Beside that we'll continue following up with the echocardiogram. Objective - Vital Signs Vital signs: Vital Signs Temp 98.4 F 02/16/19 07:40 Pulse 107 H 02/16/19 07:40 Resp 18 02/16/19 07:40 BP 129/80 02/16/19 07:40 Pulse Ox 96 02/16/19 07:40 Intake & Output 02/15/19 02/16/19 02/16/19 18:59 06:59 18:59 Intake Total 140 114.109 Balance 140 114.109 Weight 93 kg Intake: Intake, IV Titration 140 114.109 Amount Heparin Sod,Pork in 0.45% 114.109 NaCl 25,000 unit In 0.45 % NaCl 1 250ml.bag @ 18 UNITS/KG/HR 17.01 mls/hr IV .[id number] TODD Rx#: [id number] Sodium Chloride 0.9% 1, 140 000 ml @ 20 mls/hr IV . Q24H TODD Rx#:[id number] Oral 0 Other: Voiding Method Incontinent Incontinent # Voids 3 2 # Bowel Movements 1 - Labs CBC & Chem 7: 02/16/19 03:38 02/16/19 03:38 Labs: Abnormal Lab Results - Last 24 Hours (Table) 02/12/19 02/15/19 02/15/19 Range/Units 16:55 15:44 15:44 WBC (3.8-10.6) k/uL RBC (4.30-5.90) m/uL Hgb (13.0-17.5) gm/dL Hct (39.0-53.0) % Plt Count (150-450) k/uL Neutrophils # (1.3-7.7) k/uL Lymphocytes # (1.0-4.8) k/uL APTT (22.0-30.0) sec D-Dimer >35.20 H (<0.60) mg/L FEU BUN (9-20) mg/dL Creatinine (0.66-1.25) mg/dL Glucose (74-99) mg/dL Troponin I 0.136 H* (0.000-0.034) ng/mL Urine Blood Trace H (Negative) Urine Bacteria Rare H (None) /hpf Urine Mucus Rare H (None) /hpf Urine Yeast (Budding) Rare H (None) /hpf 02/15/19 02/15/19 02/15/19 Range/Units 21:21 21:21 22:30 WBC 16.2 H (3.8-10.6) k/uL RBC 3.38 L (4.30-5.90) m/uL Hgb 10.3 L (13.0-17.5) gm/dL Hct 31.1 L (39.0-53.0) % Plt Count 463 H (150-450) k/uL Neutrophils # 14.6 H (1.3-7.7) k/uL Lymphocytes # 0.4 L (1.0-4.8) k/uL APTT 115.2 H* >200.0 H* (22.0-30.0) sec D-Dimer (<0.60) mg/L FEU BUN (9-20) mg/dL Creatinine (0.66-1.25) mg/dL Glucose (74-99) mg/dL Troponin I (0.000-0.034) ng/mL Urine Blood (Negative) Urine Bacteria (None) /hpf Urine Mucus (None) /hpf Urine Yeast (Budding) (None) /hpf 02/16/19 02/16/19 02/16/19 Range/Units 03:38 03:38 03:38 WBC 15.6 H (3.8-10.6) k/uL RBC 3.17 L (4.30-5.90) m/uL Hgb 9.5 L (13.0-17.5) gm/dL Hct 29.5 L (39.0-53.0) % Plt Count 488 H (150-450) k/uL Neutrophils # 14.0 H (1.3-7.7) k/uL Lymphocytes # 0.4 L (1.0-4.8) k/uL APTT 82.9 H (22.0-30.0) sec D-Dimer (<0.60) mg/L FEU BUN 44 H (9-20) mg/dL Creatinine 1.93 H (0.66-1.25) mg/dL Glucose 108 H (74-99) mg/dL Troponin I (0.000-0.034) ng/mL Urine Blood (Negative) Urine Bacteria (None) /hpf Urine Mucus (None) /hpf Urine Yeast (Budding) (None) /hpf
[2019-02-16] MEDS ORDERED: HEPARIN SODIUM,PORCINE 5,000 UNIT/ML 1 ML VIAL IV PRN (11:13)
[2019-02-16 11:53] LABS: Partial Thromboplastin Time 46.8 sec (22.0-30.0); Prothrombin Time 10.6 sec (9.0-12.0)
--- NOTE | 2019-02-16 12:02 | P.CNPUL ---
History of Present Illness Consult date: 02/16/19 Requesting physician: Chen Patel Reason for consult: pulmonary embolism Chief complaint: Pulmonary embolism History of present illness: This 78-year-old white male patient who underwent closed reduction of right total hip arthroplasty for acute recurrent dislocation of a recent right total hip arthroplasty on 02/14/2019, who developed hypoxemia yesterday on postop day #1. Patient oxygen requirement increased from 4-10 L, he became tachycardic, short of breath. A dose of IV Lasix was given, x-ray was obtained showing no acute cardiopulmonary findings, no evidence of heart failure, no infiltrates, no pleural effusions. When the oxygen saturations did not improve with Lasix, d- dimer was checked and came back at greater than 35.2. V/Q scan was obtained in view of impaired renal function showing multiple segmental size perfusion defect in the right lung, with perfusion abnormalities larger than the ventilation abnormalities. The scan showed a high probability of pulmonary embolism involving both right upper lobe and right lower lobe. Patient was started on IV heparin. This morning he is seen on medical surgical floor. He remains on high flow oxygen, at 10 L, with a pulse ox of 96%. Denies any chest pain, denies any hemoptysis, still slightly tachycardic, with a heart rate in the 107-116 range. Denies being short of breath, lung sounds are clear, with diminished breath sounds at the bases. He did have an echocardiogram done on 02/13/2019 which showed preserved left ventricle systolic function with an EF of 60-65%, mild , mild TR, mild pulmonary hypertension with PA systolic of 44.6 mmHg. Labs have been reviewed, showing white blood cell count today of 15.6, hemoglobin is 9.5, PTT is 82.9 on heparin infusion, electrolytes are within normal limits, BUN is 4 4 and creatinine is 1.93. Troponin was 0.136, hemodynamically patient is stable. Review of Systems All systems: negative Constitutional: Denies chills, Denies fever Eyes: denies blurred vision, denies pain Ears, nose, mouth and throat: Denies headache, Denies sore throat Cardiovascular: Denies chest pain, Denies shortness of breath Respiratory: Reports dyspnea, Denies cough Gastrointestinal: Denies abdominal pain, Denies diarrhea, Denies nausea, Denies vomiting Musculoskeletal: Reports limitation of motion, Denies myalgias Musculoskeletal: right: hip pain Integumentary: Denies pruritus, Denies rash Neurological: Denies numbness, Denies weakness Psychiatric: Denies anxiety, Denies depression Endocrine: Denies fatigue, Denies weight change Past Medical History Past Medical History: Prostate Disorder Additional Past Medical History / Comment(s): Enlarged prostate. History of Any Multi-Drug Resistant Organisms: None Reported Past Surgical History: Bowel Resection, Hernia Repair, Joint Replacement, Orthopedic Surgery, Tonsillectomy Additional Past Surgical History / Comment(s): hernia 1970, 2014 cancerous polyp removed chemo pill with radiation, 2018 colostomy placed, Right hip 02/04/2019 Past Anesthesia/Blood Transfusion Reactions: No Reported Reaction Past Psychological History: Anxiety Smoking Status: Never smoker Past Drug Use History: None Reported - Past Family History Father Family Medical History: Dementia, Prostate Disorder Additional Family Medical History / Comment(s): 1995 dementia Mother Family Medical History: CVA/TIA, Seizure Disorder Additional Family Medical History / Comment(s): Grand mal epileptic, 1988 stroke Medications and Allergies Home Medications Medication Instructions Recorded Confirmed Type Cephalexin [Keflex] 500 mg PO TID 02/12/19 02/12/19 History Tamsulosin [Flomax] 0.4 mg PO DAILY 02/12/19 02/12/19 History rOPINIRole HCL 0.5 mg PO HS 02/12/19 02/12/19 History Allergies Allergy/AdvReac Type Severity Reaction Status Date / Time No Known Allergies Allergy Verified 02/12/19 15:52 Physical Exam Vitals: Vital Signs Temp Pulse Pulse Resp BP Pulse Ox 02/16/19 09:20 96 02/16/19 07:40 98.4 F 107 H 18 129/80 96 02/16/19 01:42 116 H 16 130/87 97 02/16/19 00:25 18 02/15/19 20:35 98.3 F 125 H 18 142/88 93 L 02/15/19 20:20 98.5 F 126 H 16 142/88 94 L 02/15/19 16:00 120 H 15 02/15/19 15:00 97.3 F L 119 H 15 142/84 90 L 02/15/19 14:33 146/82 02/15/19 13:32 157/78 Intake and Output 02/15/19 02/16/19 02/16/19 22:59 06:59 14:59 Intake Total 21.263 92.846 Balance 21.263 92.846 Intake: Intake, IV Titration 21.263 92.846 Amount Heparin Sod,Pork in 0.45% 21.263 92.846 NaCl 25,000 unit In 0.45 % NaCl 1 250ml.bag @ 18 UNITS/KG/HR 17.01 mls/hr IV .[id number] [facility] Rx#: [id number] Other: Voiding Method Incontinent Incontinent # Voids 1 2 # Bowel Movements 1 Weight 93 kg GENERAL EXAM: Alert, pleasant, 78-year-old white male on 10 L high flow oxygen, comfortable in no apparent distress. HEAD: Normocephalic/atraumatic. EYES: Normal reaction of pupils, equal size. Conjunctiva pink, sclera white. NOSE: Clear with pink turbinates. THROAT: No erythema or exudates. NECK: No masses, no JVD, no thyroid enlargement, no adenopathy. CHEST: No chest wall deformity. Symmetrical expansion. LUNGS: Equal air entry with no crackles, wheeze, rhonchi or dullness. CVS: Regular rate and rhythm, normal S1 and S2, no gallops, no murmurs, no rubs ABDOMEN: Soft, nontender. No hepatosplenomegaly, normal bowel sounds, no guarding or rigidity. EXTREMITIES: No clubbing, no edema, no cyanosis, 2+ pulses and upper and lower extremities. Right hip incision is clean dry and intact MUSCULOSKELETAL: Muscle strength and tone normal. SPINE: No scoliosis or deformity SKIN: No rashes CENTRAL NERVOUS SYSTEM: Alert and oriented -3. No focal deficits, tone is normal in all 4 extremities. PSYCHIATRIC: Alert and oriented -3. Appropriate affect. Intact judgment and insight. Results - Laboratory Findings CBC and BMP: 02/16/19 03:38 02/16/19 03:38 PT/INR, D-dimer PT 11.3 sec (9.0-12.0) 02/15/19 21:21 INR 1.1 (<1.2) 02/15/19 21:21 D-Dimer >35.20 mg/L FEU (<0.60) H 02/15/19 15:44 Abnormal lab findings: Abnormal Labs 02/12/19 02/12/19 02/12/19 15:21 15:21 16:55 WBC RBC 3.50 L Hgb 10.6 L Hct 33.1 L Plt Count 522 H Neutrophils # 7.9 H Lymphocytes # 0.4 L APTT D-Dimer Carbon Dioxide 31 H BUN 26 H Creatinine Glucose 110 H Troponin I Total Protein 6.2 L Albumin 3.3 L TSH Free T3 pg/mL Urine Blood Trace H Urine Bacteria Rare H Urine Mucus Rare H Urine Yeast (Budding) Rare H 02/13/19 02/13/19 02/13/19 05:33 05:33 05:33 WBC RBC 3.53 L Hgb 10.8 L Hct 32.7 L Plt Count 530 H Neutrophils # 8.5 H Lymphocytes # 0.4 L APTT D-Dimer Carbon Dioxide BUN 27 H Creatinine 1.26 H Glucose 116 H Troponin I Total Protein Albumin TSH 8.910 H Free T3 pg/mL Urine Blood Urine Bacteria Urine Mucus Urine Yeast (Budding) 02/14/19 02/14/19 02/14/19 06:56 06:56 06:56 WBC RBC 3.23 L Hgb 9.9 L Hct 29.7 L Plt Count Neutrophils # Lymphocytes # 0.5 L APTT D-Dimer Carbon Dioxide BUN 38 H Creatinine 1.41 H Glucose 106 H Troponin I Total Protein Albumin TSH Free T3 pg/mL 2.7 L Urine Blood Urine Bacteria Urine Mucus Urine Yeast (Budding) 02/15/19 02/15/19 02/15/19 07:23 07:23 15:44 WBC 13.5 H RBC 3.47 L Hgb 10.4 L Hct 31.8 L Plt Count 524 H Neutrophils # 12.0 H Lymphocytes # 0.4 L APTT D-Dimer Carbon Dioxide BUN 38 H Creatinine 1.39 H Glucose 117 H Troponin I 0.136 H* Total Protein Albumin TSH Free T3 pg/mL Urine Blood Urine Bacteria Urine Mucus Urine Yeast (Budding) 02/15/19 02/15/19 02/15/19 15:44 21:21 21:21 WBC 16.2 H RBC 3.38 L Hgb 10.3 L Hct 31.1 L Plt Count 463 H Neutrophils # 14.6 H Lymphocytes # 0.4 L APTT 115.2 H* D-Dimer >35.20 H Carbon Dioxide BUN Creatinine Glucose Troponin I Total Protein Albumin TSH Free T3 pg/mL Urine Blood Urine Bacteria Urine Mucus Urine Yeast (Budding) 02/15/19 02/16/19 02/16/19 22:30 03:38 03:38 WBC 15.6 H RBC 3.17 L Hgb 9.5 L Hct 29.5 L Plt Count 488 H Neutrophils # 14.0 H Lymphocytes # 0.4 L APTT >200.0 H* D-Dimer Carbon Dioxide BUN 44 H Creatinine 1.93 H Glucose 108 H Troponin I Total Protein Albumin TSH Free T3 pg/mL Urine Blood Urine Bacteria Urine Mucus Urine Yeast (Budding) 02/16/19 03:38 WBC RBC Hgb Hct Plt Count Neutrophils # Lymphocytes # APTT 82.9 H D-Dimer Carbon Dioxide BUN Creatinine Glucose Troponin I Total Protein Albumin TSH Free T3 pg/mL Urine Blood Urine Bacteria Urine Mucus Urine Yeast (Budding) - Diagnostic Findings Chest x-ray: report reviewed, image reviewed Additional studies: VQ scan results reviewed, echocardiogram results reviewed Assessment and Plan Plan: Assessment: #1. Acute hypoxemic respiratory failure related to acute pulmonary embolism. D-dimer was greater than 35, and VQ scan showed high probability of pulmonary embolism involving the right lung. Hemodynamically patient is stable, no hypotension, no complaints of chest pain, no hemoptysis. Slightly tachycardic, echocardiogram is pending #2. 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 Recent right total hip arthroplasty in the last 6 weeks this was done at [facility]. Patient experienced 2 dislocations of the right hip since his surgery #4. Anemia of chronic disease #5. History of degenerative joint disease #6. History of prostate cancer #7. History of bowel resection for colon cancer, 2 years ago, and this was followed by radiation and chemotherapy #8. Hypertension Plan: We'll obtain repeat echocardiogram, patient is on IV anticoagulation in the form of heparin. Currently is relatively asymptomatic other than persistently hypoxemic and slightly tachycardic. Normotensive. Case was discussed with the attending physician, and orthopedic surgery is recommending transfer to a tertiary care facility for possibility of surgical intervention for the recurrent right hip dislocation, and this will be high risk surgery especially in view of recent pulmonary embolism. Agree with the transfer to a tertiary care center, possibly [facility]. I performed a history & physical examination of the patient and discussed their management with my nurse practitioner, Coco Watson. I reviewed the nurse practitioner's note and agree with the documented findings and plan of care. Lung sounds are positive for clear breath sounds. The findings and the impression was discussed with the patient. I attest to the documentation by the nurse practitioner. Time with Patient: Greater than 30
--- NOTE | 2019-02-16 12:10 | PN ---
PROGRESS NOTE DATE OF SERVICE: 02/16/2019 This is a 78-year-old gentleman who was admitted with multiple medical problems and recurrent dislocation after hip surgery was hypoxic yesterday. Patient complains of weakness also. Evaluation showed evidence of acute pulmonary embolism. Patient started on IV heparin at this time. The V/Q scan showed high probability of pulmonary embolism especially in the right leg. Multiple segments of perfuse defects are noted. Dr. Walden's evaluation is in progress at this time. Orthopedics also following the patient closely. PAST MEDICAL HISTORY: Reviewed. REVIEW OF SYSTEMS: CARDIOVASCULAR SYSTEM: No angina. RESPIRATION: As mentioned earlier. GI: As mentioned earlier. : No dysuria. NERVOUS SYSTEM: No numbness or weakness. HEMATOLOGY: As mentioned earlier. CURRENT MEDICATIONS ARE: 1. [place] 5 mg q.6 p.r.n. 2. Xanax 0.5 t.i.d. 3. Colace 100 mg p.o. b.i.d. 4. Heparin drip. 5. Apresoline 10 mg q.4 p.r.n. 6. Dilaudid p.r.n. 7. Milk of magnesia. 8. Toprol-XL. 9. Narcan 0.2 q.2 p.r.n. 10.Zofran. 11.Protonix. 12.Requip. 13.Flomax. 14.Restoril. PHYSICAL EXAM: Patient is alert, oriented x3. Pulse is 107, blood pressure 129/80, respiration 18, temperature 98.4, pulse ox 98% on 10 L. HEENT: Conjunctivae normal. NECK: No jugular venous distension. CARDIOVASCULAR SYSTEM: S1, S2. RESPIRATION: Breaths sounds diminished at the bases, a few scattered rhonchi, no crackles. ABDOMEN: Soft, nontender. No mass palpable. LEGS: Status post hip surgery on the right. NERVOUS SYSTEM: As mentioned earlier, moves all four limbs. LYMPHATICS: No lymph node enlargement. SKIN: No ulcer, no rashes. JOINTS: No active deformity or arthropathy. LABS: WBC 15.2, hemoglobin is 9.5, D-dimer is 82.9, sodium 139, potassium 4.1, creatinine is 1.39. ASSESSMENT: 1. Accelerated hypertension with hypertensive urgency, present on admission. 2. Acute pulmonary embolism with acute hypoxic respiratory failure. 3. Recent right hip arthroplasty with recurrent dislocations. 4. Troponin 0.136. 5. Mild acute renal failure, possibly prerenal acute tubular necrosis. 6. Anemia, normocytic anemia of chronic disease. 7. Increased platelets. 8. Hypoxia. 9. History of enlarged prostate. 10.History of bowel resection. 11.History of degenerative joint disease. 12.History of tonsillectomy. 13.History of anxiety. 14.Sick euthyroid syndrome with normal free T4 and as well as increased TSH. 15.FULL CODE. RECOMMENDATION: Recommend to continue current management. Continue with IV heparin. Continue the rest of medications. Monitor closely, closely follow with multiple consultants. Prognosis guarded because of multiple complex medical issues. Troponin 0.136. Cardiology is following the patient closely. I would also recommend repeat bedside 2D echo. The initial echo done on 02/13 showed ejection fraction 60%-65%. Guarded prognosis because of multiple complex medical issues and discussed with Orthopedic Surgery. Will discuss with Pulmonary and further recommendations to follow. Discussed with the family at length and family agrees. PHI / STACIEN: [id number] /
--- NOTE | 2019-02-16 12:19 | US ---
EXAMINATION TYPE: US venous doppler duplex LE DATE OF EXAM: 02/16/2019 12:01 PM COMPARISON: NONE CLINICAL HISTORY: possible DVT. New PE's on patient pending total right hip SIDE PERFORMED: bilateral TECHNIQUE: The lower extremity deep venous system is examined utilizing real time linear array sonog yoko with graded compression, doppler sonography and color-flow sonography. VESSELS IMAGED: External Iliac Vein (EIV) Common Femoral Vein Deep Femoral Vein Greater Saphenous Vein * Femoral Vein Popliteal Vein Small Saphenous Vein * Proximal Calf Veins (* superficial vessels) Right Leg: Appears negative for DVT, patient's right hip is dislocated and pending total hip replace ment, could not ambulate right leg due to this and therefore I had to do limited images of popiteal s pace. Left Leg: Internal echoes within left EIV/CFV, does not fully compress, not total occluding due to b lood flow seen around it. Grayscale, color doppler, spectral doppler imaging performed of the deep veins of the lower extremiti es. 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 Suboptimal evaluation on the right, visualized portions show no acute DVT. Mild diffuse subcutaneous edema is felt present bilaterally.
--- NOTE | 2019-02-16 12:21 | P.PN ---
Subjective Progress Note Date: 02/16/19 This is a 78 year-old male who is admitted for recurrent right hip dislocation and hypertension. Patient is currently on heparin for right-side pulmonary embolism. Patient denies any shortness or breath or pain in the hip today. Patient has undergone several closed reductions of the right hip, but the right hip continues to dislocate. Patient denies any new complaints today. Objective - Vital Signs Vital signs: Vital Signs Temp 98.4 F 02/16/19 07:40 Pulse 107 H 02/16/19 07:40 Resp 18 02/16/19 07:40 BP 129/80 02/16/19 07:40 Pulse Ox 96 02/16/19 07:40 Intake & Output 02/15/19 02/16/19 02/16/19 18:59 06:59 18:59 Intake Total 140 114.109 Balance 140 114.109 Weight 93 kg Intake: Intake, IV Titration 140 114.109 Amount Heparin Sod,Pork in 0.45% 114.109 NaCl 25,000 unit In 0.45 % NaCl 1 250ml.bag @ 18 UNITS/KG/HR 17.01 mls/hr IV .[id number] [facility] Rx#: [id number] Sodium Chloride 0.9% 1, 140 000 ml @ 20 mls/hr IV . Q24H [facility] Rx#:[id number] Oral 0 Other: Voiding Method Incontinent Incontinent # Voids 3 2 # Bowel Movements 1 - Exam On exam patient is lying comfortably in bed in no acute distress. The right leg is shortened. There is mild-moderate swelling. Calf is soft and nontender to palpation. Patient has full range of motion of the right foot and ankle without pain or difficulty. The right lower extremity is warm and well perfused. Sensation intact. Neurovascular status and circulatory status are intact. - Labs CBC & Chem 7: 02/16/19 03:38 02/16/19 03:38 Labs: Abnormal Lab Results - Last 24 Hours (Table) 02/12/19 02/15/19 02/15/19 Range/Units 16:55 15:44 15:44 WBC (3.8-10.6) k/uL RBC (4.30-5.90) m/uL Hgb (13.0-17.5) gm/dL Hct (39.0-53.0) % Plt Count (150-450) k/uL Neutrophils # (1.3-7.7) k/uL Lymphocytes # (1.0-4.8) k/uL APTT (22.0-30.0) sec D-Dimer >35.20 H (<0.60) mg/L FEU BUN (9-20) mg/dL Creatinine (0.66-1.25) mg/dL Glucose (74-99) mg/dL Troponin I 0.136 H* (0.000-0.034) ng/mL Urine Blood Trace H (Negative) Urine Bacteria Rare H (None) /hpf Urine Mucus Rare H (None) /hpf Urine Yeast (Budding) Rare H (None) /hpf 02/15/19 02/15/19 02/15/19 Range/Units 21:21 21:21 22:30 WBC 16.2 H (3.8-10.6) k/uL RBC 3.38 L (4.30-5.90) m/uL Hgb 10.3 L (13.0-17.5) gm/dL Hct 31.1 L (39.0-53.0) % Plt Count 463 H (150-450) k/uL Neutrophils # 14.6 H (1.3-7.7) k/uL Lymphocytes # 0.4 L (1.0-4.8) k/uL APTT 115.2 H* >200.0 H* (22.0-30.0) sec D-Dimer (<0.60) mg/L FEU BUN (9-20) mg/dL Creatinine (0.66-1.25) mg/dL Glucose (74-99) mg/dL Troponin I (0.000-0.034) ng/mL Urine Blood (Negative) Urine Bacteria (None) /hpf Urine Mucus (None) /hpf Urine Yeast (Budding) (None) /hpf 02/16/19 02/16/19 02/16/19 Range/Units 03:38 03:38 03:38 WBC 15.6 H (3.8-10.6) k/uL RBC 3.17 L (4.30-5.90) m/uL Hgb 9.5 L (13.0-17.5) gm/dL Hct 29.5 L (39.0-53.0) % Plt Count 488 H (150-450) k/uL Neutrophils # 14.0 H (1.3-7.7) k/uL Lymphocytes # 0.4 L (1.0-4.8) k/uL APTT 82.9 H (22.0-30.0) sec D-Dimer (<0.60) mg/L FEU BUN 44 H (9-20) mg/dL Creatinine 1.93 H (0.66-1.25) mg/dL Glucose 108 H (74-99) mg/dL Troponin I (0.000-0.034) ng/mL Urine Blood (Negative) Urine Bacteria (None) /hpf Urine Mucus (None) /hpf Urine Yeast (Budding) (None) /hpf Assessment and Plan (1) Pulmonary embolism Current Visit: Yes Status: Acute Code(s): I26.99 - OTHER PULMONARY EMBOLISM WITHOUT ACUTE COR PULMONALE SNOMED Code(s): 92020199 (2) Hypertension Current Visit: Yes Status: Acute Code(s): I10 - ESSENTIAL (PRIMARY) HYPERTENSION SNOMED Code(s): 36596429 (3) Recurrent dislocation of hip joint prosthesis Current Visit: Yes Status: Acute Code(s): T84.029A - DISLOCATION OF UNSP INTERNAL JOINT PROSTHESIS, INIT ENCNTR; Z96.649 - PRESENCE OF UNSPECIFIED ARTIFICIAL HIP JOINT SNOMED Code(s): 833436498 Plan: 1. Case is discussed with Dr. Patel and patient is not medically cleared for revision right total hip arthroplasty. 2. Patient is currently being treated for acute pulmonary embolism with heparin. Hemoglobin is 9.5. Awaiting pulmonology consult. 3. Patient would benefit from revision right total hip arthroplasty, but is not medically able to undergo surgery at this time. Would recommend transfer to a tertiary facility for further management due to high risk for medical complications.
[2019-02-16] MEDS: HEPARIN SOD,PORK IN 0.45% NACL 25,000 UNIT in 0.45% NACL 1 250ML.BAG IV SCH ×2 (12:39→12:46)
[2019-02-16 15:13] VITALS: BP 117/71; PULSE 118; RESP 18; TEMP 98.6
[2019-02-16] MEDS ORDERED: METOPROLOL SUCCINATE (ER) 25 MG TAB.ER.24H PO SCH (21:00)
--- NOTE | 2019-02-16 21:16 | DS ---
DISCHARGE SUMMARY FINAL DIAGNOSES: 1. Acute pulmonary embolism on the right side with acute hypoxic respiratory failure. 2. Accelerated hypertension with hypertensive urgency present on admission. 3. History of recent right hip arthroplasty with recurrent dislocations. 4. Possible old deep vein thrombosis of the left leg. 5. Troponin 0.136 of undetermined significance, probably secondary to pulmonary embolism. 6. Mild acute renal failure possibly prerenal acute tubular necrosis. 7. Anemia, normocytic anemia of chronic disease. 8. Increased platelets. 9. Hypoxia. 10.History of enlarged prostate. 11.History of bowel resection. 12.History of degenerative joint disease. 13.History of tonsillectomy. 14.History of anxiety. 15.Sick euthyroid syndrome with normal free T4 and increased TSH. 16.FULL CODE. DISCHARGE DISPOSITION: The patient will be transferred to [facility] for further evaluation and treatment for higher level of care and tertiary care center. HISTORY OF PRESENT ILLNESS: This 78-year-old gentleman with a past medical history of multiple medical problems admitted with history of recurrent dislocations from [facility]. Patient had a previous recent right hip arthroplasty. Because of recurrent dislocations, the patient was planning to undergo revision, but because of the elevated hypertension hypertensive urgency, the patient was referred to [facility] because of the lack for gold leaf gilder in [facility]. The patient was monitored closely. Patient improved significantly and patient was set to undergo hip surgery, but the patient developed hypoxia and the patient noted to have acute right pulmonary embolism with acute hypoxic respiratory failure. Patient on IV heparin and because of the acute events, the patient was deemed extremely high risk and orthopedics here recommended transfer to higher level of care at a tertiary care hospital. Discussed the case with [facility] ICU attending and the ICU on-call and the patient being transferred to [facility] for further evaluation and treatment. On exam, vitals are stable. Cardiovascular S1, S2. Abdomen soft. Respiration: A few rhonchi. No crackles. ABDOMEN soft, nontender. LEGS: Status post arthroplasty. Please refer to medication reconciliation sheet for current list of medications which include [place] 5 mg, Xanax, Colace, heparin IV, Apresoline p.r.n., Dilaudid p.r.n., Toprol-XL, Narcan, Zofran, Protonix, Requip, Flomax, and Restoril p.r.n. MMODL / IJN: [id number] /
--- NOTE | 2019-02-17 09:01 | ECHOF ---
Referral Reason:acute pulmonary embolism MEASUREMENTS -------- HEIGHT: 162.6 cm WEIGHT: 93.0 kg BP: RVIDd: 3.3 cm (< 3.3) RAP: 5.00 mmHg RVSP: 43.29 mmHg FINDINGS -------- Sinus rhythm. Limited Study Overall left ventricular systolic function is normal with, an EF between 55 - 60 %. The right ventricle is mildly enlarged. Mild tricuspid regurgitation present. There is mild pulmonary hypertension. The right ventricular systolic pressure, as measured by Doppler, is 43.29mmHg. Normal inferior vena cava with normal inspiratory collapse consistent with estimated right atrial pre ssure of 5 mmHg. There is a trivial pericardial effusion present. CONCLUSIONS -------- 1. Sinus rhythm. 2. Limited Study 3. Overall left ventricular systolic function is normal with, an EF between 55 - 60 %. 4. The right ventricle is mildly enlarged. 5. Mild tricuspid regurgitation present. 6. There is mild pulmonary hypertension. 7. The right ventricular systolic pressure, as measured by Doppler, is 43.29mmHg. 8. Normal inferior vena cava with normal inspiratory collapse consistent with estimated right atrial pressure of 5 mmHg. 9. There is a trivial pericardial effusion present. CITY ADMINISTRATOR: Angi Cervantes RDCS
[2019-02-23] MEDS ORDERED: APIXABAN 5 MG TAB PO SCH (09:00)
== END 2019-02-16 15:05 | disposition short-term general hospital (02) | DRG 304 ==
LOC: 3SCARD 14:03 → 4SSUR 02-13 16:41
PROVIDERS: ADMIT Internal Medicine; ATTEND Internal Medicine
PROC: 0SW9XJZ Revision of Synthetic Substitute in Right Hip Joint, External Approach (ICD-10-PCS; principal; 2019-02-14 08:30)
DX: I16.0 Hypertensive urgency (principal); J96.01 Acute respiratory failure with hypoxia; I26.99 Other pulmonary embolism without acute cor pulmonale; T84.020A Dislocation of internal right hip prosthesis, initial encounter; N17.9 Acute kidney failure, unspecified; I27.20 Pulmonary hypertension, unspecified; I10 Essential (primary) hypertension; E07.81 Sick-euthyroid syndrome; D63.8 Anemia in other chronic diseases classified elsewhere; N40.0 Benign prostatic hyperplasia without lower urinary tract symptoms; M19.90 Unspecified osteoarthritis, unspecified site; Y79.2 Prosthetic and other implants, materials and accessory orthopedic devices associated with adverse incidents; Z79.899 Other long term (current) drug therapy; Z82.0 Family history of epilepsy and other diseases of the nervous system; Z82.3 Family history of stroke; Z85.038 Personal history of other malignant neoplasm of large intestine; Z85.46 Personal history of malignant neoplasm of prostate; Z86.718 Personal history of other venous thrombosis and embolism; Z90.49 Acquired absence of other specified parts of digestive tract; Z93.3 Colostomy status
CPT/HCPCS: 71045; 72170; 73501; 73502; 78582; 80048; 80053; 81001; 84439; 84443; 84481; 84484; 85025; 85379; 85610; 85730; 87040; 93005; 93306; 93308; 93970; 94760

== ENCOUNTER → 2019-12-03 | Outpatient (CLI) | payer MEDICARE, BC ==
--- NOTE | 2019-12-03 20:55 | CONS ---
CONSULTATION DATE OF SERVICE: 12/03/2019 This patient is a 78-year-old gentleman who has been evaluated in [facility] for significant excessive daytime sleepiness and multiple awakenings from sleep. HISTORY OF PRESENT ILLNESS/SLEEP-WAKE EVALUATION: Patient's usual sleep schedule is from 11:30 p.m. to 5:30 or 5:45 a.m. Sometimes he has problems with falling asleep, has symptoms of restless legs. No TV in bedroom. He sleeps in different positions. According to his , he has mild snoring. He wakes up from sleep 4 times with nocturia. No history of hypnagogic hallucinations, sleep paralysis or cataplexy. The patient has a significant amount of kicking during sleep. At present he is on treatment with Ropinirole 0.5 mg at nighttime. During the day the patient feels significantly sleepy. [place] Sleepiness Scale is increased at 13. He is taking several naps during the day. He has episodes of irritability and depression. PAST MEDICAL HISTORY: Past medical history is positive for hypertension and thrombosis. PAST SURGICAL HISTORY: Hip replacement, colon resection for cancer, colostomy. MEDICATIONS: Warfarin, Flomax, finasteride, metoprolol, furosemide, ropinirole. FAMILY HISTORY: Epilepsy, stroke in his mother. SOCIAL HISTORY: Negative for smoking or using alcohol. REVIEW OF SYSTEMS: Multiple awakenings from sleep. Sleepiness during the day. PHYSICAL EXAMINATION: GENERAL: A pleasant gentleman without distress. VITAL SIGNS: BP 147/82, HR 70, RR 16, height 5 feet 4 inches, weight 200, body mass index 34.3, temperature 98.0, oxygen saturation at room air 95%. HEENT: PERRLA, EOMI. Evaluation of oropharynx showed tongue protrudes midline. Low position of soft palate. NECK: Supple. No JVD. Thyroid is not palpable. Neck measures 16 inches in circumference. LUNGS: Clear to percussion and to auscultation. Good air exchange. No wheezing or rhonchi. HEART: S1, S2 regular. No murmurs, gallops or rubs. ABDOMEN: Obese. Colostomy. EXTREMITIES: No clubbing or cyanosis. COMMUNICATIONS TECHNICIAN: Awake, alert, and oriented X3. Cranial nerves 2 to 7 intact. There is no fasciculation or atrophy. noted. No focal deficits observed. IMPRESSION: 1. Mild snoring, low position of soft palate, multiple awakenings from sleep with nocturia; possible obstructive sleep apnea-hypopnea syndrome. 2. Restless legs syndrome. 3. Significant amount of kicking at night; periodic limb movement syndrome. 4. Status post colon resection for carcinoma; colostomy. 5. History of thrombosis. 6. Hypertension. 7. Status post hip replacement. PLAN: 1. Polysomnogram for evaluation of patient's breathing during sleep and to check for periodic limb movements. 2. Please check iron profile, including ferritin level. Patient is on treatment with blood thinner and has colostomy. Low level of iron increases risk for restless legs and periodic limb movements. If ferritin level is less than 50 mcg/mL, replacement of iron is indicated for treatment of periodic limb movements. 3. Following plan after reviewing results of sleep study. 4. CPAP therapy if sleep study is positive for obstructive sleep apnea-hypopnea syndrome. 5. Patient will be a candidate for multiple sleep latency test if the sleep study is negative for obstructive sleep apnea-hypopnea syndrome for objective evaluation of his sleepiness. Thank you very much for referring this patient for consultation. Sincerely, Song Strong MD, PhD, FAASM Diplomat of [employer] [facility] [place] MMODL / IJN: [id number] /
== END | disposition home or self-care (01) ==
LOC: SLEEP 10:52
PROVIDERS: ATTEND Internal Medicine
DX: R06.83 Snoring (principal); G25.81 Restless legs syndrome; I10 Essential (primary) hypertension; Z96.649 Presence of unspecified artificial hip joint; G47.61 Periodic limb movement disorder; Z86.718 Personal history of other venous thrombosis and embolism; Z90.49 Acquired absence of other specified parts of digestive tract; Z79.01 Long term (current) use of anticoagulants; Z79.899 Other long term (current) drug therapy
CPT/HCPCS: 99211

== ENCOUNTER → 2020-08-10 | Outpatient (CLI) | payer MEDICARE, BC ==
--- NOTE | 2020-08-10 16:11 | US ---
EXAMINATION TYPE: US carotid duplex BILAT DATE OF EXAM: 08/10/2020 COMPARISON: NONE CLINICAL HISTORY: 79-year-old male R42 DIZZINESS. TECHNIQUE: Carotid duplex ultrasound examination. Indirect Doppler criteria was utilized. FINDINGS: EXAM MEASUREMENTS: RIGHT: Peak Systolic Velocity (PSV) cm/sec ----- Right CCA: 105.6 ----- Right ICA: 103.0 ----- Right ECA: 104.3 ICA/CCA ratio: 1.0 RIGHT: End Diastole cm/sec ----- Right CCA: 30.5 ----- Right ICA: 31.8 ----- Right ECA: 16.3 LEFT: Peak Systolic Velocity (PSV) cm/sec ----- Left CCA: 77.2 ----- Left ICA: 85.3 ----- Left ECA: 81.9 ICA/CCA ratio: 1.1 LEFT: End Diastole cm/sec ----- Left CCA: 20.7 ----- Left ICA: 34.6 ----- Left ECA: 19.9 VERTEBRALS (direction of flow): Right Vertebral: Antegrade Left Vertebral: Antegrade Rhythm: Arrhythmia Experimental Box Tester notes: Atherosclerotic changes bilaterally. Calcified plaque seen within the bilateral ca rotid bulbs and ICAs IMPRESSION: Bilateral atherosclerotic change at the bifurcations but without any hemodynamically significant inte rnal carotid artery stenosis on either side. Criteria for Assigning % of Stenosis / Diameter reduction (Estimation based on the indirect measurements of the internal carotid artery velocities (ICA PSV). 1. Normal (no stenosis)=ICA PSV < 125 cm/s: ratio < 2.0: ICA EDV<40 cm/s. 2. Less than 50% stenosis=ICA PSV < 125 cm/s: ratio < 2.0: ICA EDV<40 cm/s. 3. 50 to 69% stenosis=ICA PSV of 125 to 230 cm/s: ration 2.0 ? 4.0: ICA EDV 40-100 cm/s. 4. Greater than 70% stenosis to near occlusion= ICA PSV > 230 cm/s: ratio > 4.0: ICA EDV > 100 cm/s. 5. Near occlusion= ICA PSV velocities may be low or undetectable: variable ratio and ICA EDV. 6. Total occlusion=unable to detect flow.
--- NOTE | 2020-08-15 14:05 | HM ---
HOLTER MONITOR REPORT The patient was monitored for 24 hours. Baseline rhythm is sinus mechanism with normal conduction. The average rate 81 beats per minute, minimum 46, maximum 122 beats per minute. Ventricular ectopic activity is present in the form of occasional single PVCs with episode of bigeminy. Supraventricular ectopic activity was present in the form of rare single PACs. No episode of atrial fibrillation was noted. No symptoms were reported. CONCLUSION: 1. Sinus mechanism baseline rhythm. 2. Occasional single PVCs. 3. Rare single PACs. 4. No symptoms were reported. MMODL / IJN: [id number] /
== END ==
LOC: RADECHMAIN 12:10
PROVIDERS: ATTEND Family Medicine
DX: I65.23 Occlusion and stenosis of bilateral carotid arteries (principal); I49.3 Ventricular premature depolarization
CPT/HCPCS: 93225; 93226; 93880

== ENCOUNTER → 2021-10-17 | Outpatient (CLI) | payer MEDICARE, BC ==
[2021-10-17 10:59] LABS: Basophils # (A) 0.1 k/uL (0-0.2); Basophils % (A) 0 %; Eosinophils # (A) 0.1 k/uL (0-0.7); Eosinophils % (A) 0 %; HCT 41.4 % (39.0-53.0); Lymphocytes # (A) 0.7 k/uL (1.0-4.8); Lymphocytes % (A) 4 %; MCH 31.4 pg (25.0-35.0); MCHC 33.7 g/dL (31.0-37.0); MCV 93.1 fL (80.0-100.0); Mean Platelet Volume 7.8; Monocytes # (A) 0.7 k/uL (0-1.0); Monocytes % (A) 5 %; Neutrophils # (A) 13.8 k/uL (1.3-7.7); Neutrophils % (A) 89 %; Platelet Count 319 k/uL (150-450); RBC 4.45 m/uL (4.30-5.90); RDW 13.7 % (11.5-15.5); WBC 15.5 k/uL (3.8-10.6)
[2021-10-17 11:01] LABS: INR 4.1 (<1.2); Prothrombin Time 40.6 sec (9.0-12.0)
[2021-10-17 11:25] LABS: African American GFR (CKD) 71 (>60 ml/min/1.73 sqM); Anion Gap 9 mmol/L; Blood Urea Nitrogen 30 mg/dL (9-20); Calcium 9.2 mg/dL (8.4-10.2); Carbon Dioxide 26 mmol/L (22-30); Chloride 103 mmol/L (98-107); Glucose 114 mg/dL (74-99); Non-African American GFR(CKD) 61 (>60 ml/min/1.73 sqM); Potassium 4.7 mmol/L (3.5-5.1); Sodium 138 mmol/L (137-145)
== END | disposition home or self-care (01) ==
LOC: LABWHC1 10:10
PROVIDERS: ATTEND Nurse Practitioner Family
DX: I48.91 Unspecified atrial fibrillation (principal)
CPT/HCPCS: 36415; 80048; 84550; 85025; 85610; 93005

== ENCOUNTER → 2024-04-21 | Outpatient (CLI) | payer MEDICARE, BC ==
--- NOTE | 2024-04-21 17:08 | US ---
EXAMINATION TYPE: US kidneys/renal and bladder DATE OF EXAM: 04/21/2024 COMPARISON: CT CLINICAL INDICATION: Male, 83 years old with history of N40.1 BENIGN PROSTATIC HYPERPLASIA WITH LOWER URIN; BPH, difficult urination TECHNIQUE: Grayscale imaging of the bilateral kidneys and urinary bladder: FINDINGS: EXAM MEASUREMENTS: Right Kidney: 11.2 x 5.3 x 6.0 cm Left Kidney: 11.4 x 5.8 x 5.4 cm Right Kidney: No evidence of hydro, hypoechoic lesion lower pole as visualized on prior CT= 2.9 x 2.4 x 2.1 cm Left Kidney: No evidence of hydro Bladder: wnl Bilateral Jets seen: Only left jet visualized There is no evidence for hydronephrosis at this point in time. No nephrolithiasis is seen. No chacorta s are identified. The urinary bladder is anechoic. IMPRESSION: 1. No evidence for obstructive uropathy. 2. Right renal cortical cyst. [facility], , 04/21/2024 5:05 PM
== END | disposition home or self-care (01) ==
LOC: RADUSWWP 11:29
PROVIDERS: ATTEND Urology
DX: N40.1 Benign prostatic hyperplasia with lower urinary tract symptoms (principal); N28.1 Cyst of kidney, acquired
CPT/HCPCS: 76770

== ENCOUNTER 2024-10-14 18:41 | Emergency (ER) | payer MEDICARE, BC ==
--- NOTE | 2024-10-14 19:01 | ED ---
General Adult HPI - General Chief complaint: Shortness of Breath Stated complaint: FRANCI Time Seen by Provider: 10/14/24 18:43 Source: EMS Mode of arrival: EMS Limitations: physical limitation - History of Present Illness Initial comments: Dictation was produced using [employer] dictation software. please excuse any grammatical, word or spelling errors. Chief Complaint: 83-year-old male presents to the emergency department wheezing History of Present Illness: Patient is 83-year-old male who apparently has undiagnosed asthma. He was out there in his yard planting strawberries when all of a sudden he started wheezing severely. EMS was called. Patient was given Solu-Medrol DuoNeb and Zofran with significant improvement of his symptoms. Patient [place] any history of heart conditions. Denies any heart failure. Denies any cough fever chills or night sweats. He states he has been slightly short of breath for the last 2 days The ROS documented in this emergency department record has been reviewed and confirmed by me. Those systems with pertinent positive or negative responses have been documented in the HPI. All other systems are other negative and/or noncontributory. - Related Data Home Medications Medication Instructions Recorded Confirmed Cephalexin [Keflex] 500 mg PO TID 02/12/19 02/12/19 Tamsulosin [Flomax] 0.4 mg PO DAILY 02/12/19 02/12/19 rOPINIRole HCL 0.5 mg PO HS 02/12/19 02/12/19 Previous Rx's Medication Instructions Recorded Albuterol Inhaler [Ventolin Hfa 1 - 2 puff INHALATION RT-Q6H PRN 10/14/24 Inhaler] #1 each methylPREDNISolone Dose Pack 4 mg PO DIRECTED #1 packet 10/14/24 [Medrol Dose Pack] Allergies Allergy/AdvReac Type Severity Reaction Status Date / Time No Known Allergies Allergy Verified 02/12/19 15:52 Review of Systems ROS Statement: Those systems with pertinent positive or pertinent negative responses have been documented in the HPI. ROS Other: All systems not noted in ROS Statement are negative. Past Medical History Past Medical History: Prostate Disorder Additional Past Medical History / Comment(s): Enlarged prostate. History of Any Multi-Drug Resistant Organisms: None Reported Past Surgical History: Bowel Resection, Hernia Repair, Joint Replacement, Orthopedic Surgery, Tonsillectomy Additional Past Surgical History / Comment(s): hernia 1970, 2015 cancerous polyp removed chemo pill with radiation, 2018 colostomy placed, Right hip 02/04/2019 Past Anesthesia/Blood Transfusion Reactions: No Reported Reaction Past Psychological History: Anxiety Past Drug Use History: None Reported - Past Family History Father Family Medical History: Dementia, Prostate Disorder Additional Family Medical History / Comment(s): 1995 dementia Mother Family Medical History: CVA/TIA, Seizure Disorder Additional Family Medical History / Comment(s): Grand mal epileptic, 1988 stroke General Exam - General Exam Comments Initial Comments: PHYSICAL EXAM: General Impression: Alert and oriented x3, not in acute distress HEENT: Normocephalic atraumatic, extra-ocular movements intact, pupils equal and reactive to light bilaterally, mucous membranes moist. Cardiovascular: Heart regular rate and rhythm Chest: Able to complete full sentences, no retractions, no tachypnea, mild end expiratory wheezing Abdomen: abdomen soft, non-tender, non-distended, no organomegaly Musculoskeletal: Pulses present and equal in all extremities, no peripheral edema Motor: no focal deficits noted Neurological: CN II-XII grossly intact, no focal motor or sensory deficits noted Skin: Intact with no visualized rashes Psych: Normal affect and mood Limitations: physical limitation Course Vital Signs 10/14/24 18:43 Temperature 98.6 F Pulse Rate 59 L Respiratory 22 Rate Blood Pressure 128/83 O2 Sat by Pulse 94 L Oximetry Medical Decision Making - Medical Decision Making Was pt. sent in by a medical professional or institution (Dr. PA, INTERNIST, urgent care, hospital, or [facility]...) When possible be specific @ -No Did you speak to anyone other than the patient for history (EMS, parent, family, police, friend...)? What history was obtained from this source @ -No Did you review nursing and triage notes (agree or disagree)? Why? @ -I reviewed and agree with nursing and triage notes Were old charts reviewed (outside hosp., previous admission, EMS record, old EKG, old radiological studies, urgent care reports/EKG's, [facility] records)? Report findings @ -No old charts were reviewed Differential Diagnosis (chest pain, altered mental status, abdominal pain women, abdominal pain men, vaginal bleeding, musculoskeletal, weakness, fever, dyspnea, syncope, headache, dizziness, GI bleed, back pain, seizure, CVA, palpatations, mental health)? @ -Differential Dyspnea: Coronary syndrome, arrhythmia, tamponade, asthma, COPD, pulmonary embolism, pneumonia, pneumothorax, pulmonary effusion, anaphylaxis, diabetic ketoacidosis, flailed chest, pulmonary contusion, diaphragmatic rupture, anemia, neuromuscular, this is not meant to be an all-inclusive list. EKG interpreted by me (3pts min.). @ -My EKG interpretation: Ventricular rate 111, sinus tachycardia, RI 151, QRS 100, QTc 394. No RI prolongation, no QTC prolongation, no ST or T-wave changes noted. Overall, this EKG is unremarkable X-rays interpreted by me (1pt min.). @ -Chest x-ray shows no acute processes CT interpreted by me (1pt min.). @ -None done U/S interpreted by me (1pt. min.). @ -None done What testing was considered but not performed or refused? (CT, X-rays, U/S, labs)? Why? @ -None What meds were considered but not given or refused? Why? @ -None Was smoking cessation discussed for >3mins.? @ -No Were there social determinants of health that impacted care today? How? (Homelessness, low income, unemployed, alcoholism, drug addiction, transp ortation, low edu. Level, literacy, decrease access to med. care, fci, rehab)? @ -No Was there de-escalation of care discussed even if they declined (Discuss DNR or withdrawal of care, Hospice)? DNR status @ -No What co-morbidities impacted this encounter? (DM, HTN, Smoking, COPD, CAD, Cancer, CVA, ARF, Chemo, Hep., AIDS, mental health diagnosis, sleep apnea, morbid obesity)? @ -None Was patient admitted / discharged? Hospital course, mention meds given and route, prescriptions, significant lab abnormalities, going to OR and other pertinent info. @ -83-year-old male presents emergency department wheezing. By the time patient had arrived to the emergency department his wheezing was significantly improved after having had Solu-Medrol, and DuoNeb. Vital signs upon arrival are within acceptable limits. X-ray is unremarkable. Laboratory evaluation is negative. Cardiac workup is negative. Viral testing negative. Patient observed in the emergency department for approximately 2 hours. Reevaluated bedside 8:44 PM in stable medical condition. Patient discharged with referral to pulmonology Did you discuss the management of the patient with other professionals (professionals i.e. , PA, INTERNIST, lab, RT, psych nurse, licensed clinical social worker, cement truck driver, teacher, credit products officer, mattress spring encaser)? Give summary @ -No Was critical care preformed (if so, how long)? @ -No Undiagnosed new problem with uncertain prognosis? @ -No Drug Therapy requiring intensive monitoring for toxicity (Heparin, Nitro, Insulin, Cardizem)? @ -No Were any procedures done? @ -No Diagnosis/symptom? Acute, or Chronic, or Acute on Chronic? Uncomplicated (without systemic symptoms) or Complicated (systemic symptoms)? @ -Bronchitis Side effects of treatment? @ -No Exacerbation, Progression, or Severe Exacerbation? @ -No Poses a threat to life or bodily function? How? (Chest pain, [place], AL, pneumonia, PE, COPD, DKA, ARF, appy, cholecystitis, CVA, Diverticulitis, Homicidal, Suicidal, threat to staff... and all critical care pts) @ -yes - Lab Data Result diagrams: 10/14/24 18:59 10/14/24 18:59 Lab Results 10/14/24 10/14/24 10/14/24 Range/Units 18:59 18:59 18:59 WBC 14.94 H (4.50-10.00) 10*3/uL RBC 4.53 (4.40-5.60) 10*6/uL Hgb 13.8 (13.0-17.0) g/dL Hct 41.0 (39.6-50.0) % MCV 90.5 (80.0-97.0) fL MCH 30.5 (27.0-32.0) pg MCHC 33.7 (32.0-37.0) g/dL Plt Count 281 (140-440) 10*3/uL MPV 10.1 (9.5-12.2) fL Immature Gran % (Auto) 0.5 % Neutrophils % 84.0 % Lymphocytes % 6.7 % Monocytes % 8.4 % Eosinophils % 0.1 % Basophils % 0.3 % Immature Gran # 0.07 H (0.00-0.04) 10*3/uL Neutrophils # 12.55 H (1.80-7.70) 10*3/uL Lymphocytes # 1.00 (0.90-5.00) 10*3/uL Monocytes # 1.25 H (0.20-1.00) 10*3/uL Eosinophils # 0.02 L (0.04-0.35) 10*3/uL Basophils # 0.05 (0.00-0.10) 10*3/uL PT (10.0-12.5) sec INR (<1.2) APTT (22.0-30.0) sec Sodium 135 L (137-145) mmol/L Potassium 4.2 (3.5-5.1) mmol/L Chloride 100 (98-107) mmol/L Carbon Dioxide 23 (22-30) mmol/L Anion Gap 12 mmol/L BUN 16 (9-20) mg/dL Creatinine 0.95 (0.66-1.25) mg/dL Est GFR (CKD-EPI)AfAm 86 (>60 ml/min/1.73 sqM) Est GFR (CKD-EPI)NonAf 74 (>60 ml/min/1.73 sqM) Glucose 126 H (74-99) mg/dL Calcium 9.6 (8.4-10.2) mg/dL Total Bilirubin 1.2 (0.2-1.3) mg/dL AST 32 (17-59) U/L ALT 23 (4-49) U/L Alkaline Phosphatase 100 (38-126) U/L Troponin I <0.012 (0.000-0.034) ng/mL NT-Pro-B Natriuret Pep 288 pg/mL Total Protein 6.9 (6.3-8.2) g/dL Albumin 4.0 (3.5-5.0) g/dL Influenza Type A (PCR) (Not Detectd) Influenza Type B (PCR) (Not Detectd) RSV (PCR) (Not Detectd) SARS-CoV-2 (PCR) (Not Detectd) 10/14/24 10/14/24 Range/Units 18:59 19:33 WBC (4.50-10.00) 10*3/uL RBC (4.40-5.60) 10*6/uL Hgb (13.0-17.0) g/dL Hct (39.6-50.0) % MCV (80.0-97.0) fL MCH (27.0-32.0) pg MCHC (32.0-37.0) g/dL Plt Count (140-440) 10*3/uL MPV (9.5-12.2) fL Immature Gran % (Auto) % Neutrophils % % Lymphocytes % % Monocytes % % Eosinophils % % Basophils % % Immature Gran # (0.00-0.04) 10*3/uL Neutrophils # (1.80-7.70) 10*3/uL Lymphocytes # (0.90-5.00) 10*3/uL Monocytes # (0.20-1.00) 10*3/uL Eosinophils # (0.04-0.35) 10*3/uL Basophils # (0.00-0.10) 10*3/uL PT 13.6 H (10.0-12.5) sec INR 1.3 H (<1.2) APTT 25.5 (22.0-30.0) sec Sodium (137-145) mmol/L Potassium (3.5-5.1) mmol/L Chloride (98-107) mmol/L Carbon Dioxide (22-30) mmol/L Anion Gap mmol/L BUN (9-20) mg/dL Creatinine (0.66-1.25) mg/dL Est GFR (CKD-EPI)AfAm (>60 ml/min/1.73 sqM) Est GFR (CKD-EPI)NonAf (>60 ml/min/1.73 sqM) Glucose (74-99) mg/dL Calcium (8.4-10.2) mg/dL Total Bilirubin (0.2-1.3) mg/dL AST (17-59) U/L ALT (4-49) U/L Alkaline Phosphatase (38-126) U/L Troponin I (0.000-0.034) ng/mL NT-Pro-B Natriuret Pep pg/mL Total Protein (6.3-8.2) g/dL Albumin (3.5-5.0) g/dL Influenza Type A (PCR) Not Detected (Not Detectd) Influenza Type B (PCR) Not Detected (Not Detectd) RSV (PCR) Not Detected (Not Detectd) SARS-CoV-2 (PCR) Not Detected (Not Detectd) Disposition Clinical Impression: Bronchitis Disposition: HOME SELF-CARE Condition: Fair Instructions (If sedation given, give patient instructions): Asthma (ED) Prescriptions: methylPREDNISolone Dose Pack [Medrol Dose Pack] 4 mg PO DIRECTED #1 packet Albuterol Inhaler [Ventolin Hfa Inhaler] 1 - 2 puff INHALATION RT-Q6H PRN #1 each PRN Reason: Dyspnea Is patient prescribed a controlled substance at d/c from ED?: No Referrals: Adrian Narvaez DO [Doctor of Osteopathic Medicine] - 1-2 days Time of Disposition: 20:43
[2024-10-14 19:05] LABS: Basophils # (A) 0.05 10*3/uL (0.00-0.10); Basophils % (A) 0.3 %; Eosinophils # (A) 0.02 10*3/uL (0.04-0.35); Eosinophils % (A) 0.1 %; HGB 13.8 g/dL (13.0-17.0); Lymphocytes % (A) 6.7 %; MCH 30.5 pg (27.0-32.0); MCHC 33.7 g/dL (32.0-37.0); MCV 90.5 fL (80.0-97.0); Mean Platelet Volume 10.1 fL (9.5-12.2); Monocytes # (A) 1.25 10*3/uL (0.20-1.00); Monocytes % (A) 8.4 %; Neutrophils # (A) 12.55 10*3/uL (1.80-7.70); Platelet Count 281 10*3/uL (140-440); RBC 4.53 10*6/uL (4.40-5.60); RDW 13.7 % (11.5-14.5); WBC 14.94 10*3/uL (4.50-10.00)
[2024-10-14 19:13] LABS: INR 1.3 (<1.2); Partial Thromboplastin Time 25.5 sec (22.0-30.0); Prothrombin Time 13.6 sec (10.0-12.5)
[2024-10-14 19:19] LABS: ALT 23 U/L (4-49); AST 32 U/L (17-59); African American GFR (CKD) 86 (>60 ml/min/1.73 sqM); Alkaline Phosphatase 100 U/L (38-126); Anion Gap 12 mmol/L; Blood Urea Nitrogen 16 mg/dL (9-20); Calcium 9.6 mg/dL (8.4-10.2); Carbon Dioxide 23 mmol/L (22-30); Chloride 100 mmol/L (98-107); Glucose 126 mg/dL (74-99); Non-African American GFR(CKD) 74 (>60 ml/min/1.73 sqM); Potassium 4.2 mmol/L (3.5-5.1); Sodium 135 mmol/L (137-145); Total Bilirubin 1.2 mg/dL (0.2-1.3); Total Protein 6.9 g/dL (6.3-8.2)
[2024-10-14 19:27] LABS: NT-Pro-B-Type Natriuretic Pept 288 pg/mL
--- NOTE | 2024-10-14 20:01 | XR ---
EXAMINATION TYPE: XR chest 2V DATE OF EXAM: 10/14/2024 7:47 PM COMPARISON: Chest radiographs from 02/15/2019. CLINICAL INDICATION: Male, 83 years old with history of wheezing; [facility] TECHNIQUE: XR chest 2V Frontal and lateral views of the chest. FINDINGS: Lungs/Pleura: Low lung volumes are present. There is no evidence of pleural effusion, focal consolida tion, or pneumothorax. Pulmonary vascularity: Unremarkable. Heart/mediastinum: Cardiomediastinal silhouette is enlarged. Musculoskeletal: No acute osseous pathology. Other findings: None IMPRESSION: Low lung volumes with a generalized hazy appearance which could represent atelectasis versus pulmonar y edema correlate with serum BNP. [facility], , 10/14/2024 7:58 PM
[2024-10-14 20:15] LABS: Influenza A Not Detected (Not Detectd); Influenza B Not Detected (Not Detectd); RSV Not Detected (Not Detectd)
[2024-10-14] MEDS: DEXAMETHASONE SOD PHOSPHATE 10 MG/ML 1 ML VIAL IV STA (20:59)
[2024-10-14 21:02] VITALS: BP 116/75; PULSE 100; RESP 20; TEMP 99.4
== END 2024-10-14 21:36 | disposition home or self-care (01) ==
LOC: EC 18:41
DX: J40 Bronchitis, not specified as acute or chronic (principal); R00.0 Tachycardia, unspecified
CPT/HCPCS: 36415; 93005; 83880; 80053; 84484; 85025; 85610; 85730; 87636; 71046; 99285; 96374; J1100